=== PATIENT | female | born 1960 | race Hispanic/Latino ===

== ENCOUNTER 2017-07-17 12:02 | Inpatient (IN) | payer MEDICARE ==
[~2017-07-17] VITALS: Ht 149.9 cm; Wt 75.0 kg
[~2017-07-17 12:02] MED LIST: Z.0.FOLIC ACID1 MG; Z.0.IBUPROFEN400 MG; Z.0.PREDNISONE10 M1; Z.0.PRILOSEC OTC20 M; Z.1.LEVOTHYROXINE100; Z.1.METHOTREXATE2.5; [UNRECOGNIZED DRUG - OTHER]
[2017-07-17] MEDS ORDERED: CEFTRIAXONE SOD 1 GM VIAL IV STA (12:06)
[2017-07-17] MEDS ORDERED: AZITHROMYCIN 500MG/SOD CHL 0.9% 250ML BAG IV STA (12:06)
[2017-07-17] MEDS: SODIUM CHLORIDE 0.9% 1000ML 1,000 ML IV SCH ×2 (12:30→21:00)
[2017-07-17] MEDS ORDERED: ACETAMINOPHEN 1000 MG/100 ML IV STA (12:35)
--- NOTE | 2017-07-17 12:58 | Diagnostic Imaging Report ---
Portable chest x-ray CPT code 54518 INDICATION: Hypoxia, flulike symptoms COMPARISON: Chest x-ray 04/22/2009 FINDINGS: Frontal view of the chest obtained at 1019 hours. The cardiac silhouette is enlarged. The pulmonary vascular marking are engorged. The lungs demonstrate low lung volumes. There is prominence of the pulmonary interstitium, more severe compared to previous exam. There are patchy airspace opacities in the right upper lobe and in the lung bases. Eventration of the right diaphragm is stable. No large effusions. There is no pneumothorax. The osseous structures are intact and normal in morphology. IMPRESSION: 1. Stable cardiomegaly and pulmonary vascular congestion. 2. Patchy airspace opacities and prominence of the pulmonary interstitium could be due to infection or edema. A background of pulmonary fibrosis cannot be excluded. 3. Stable low lung volumes and eventration of the right diaphragm. Signed by: Dr. Roscoe Campbell MD on 07/17/2017 12:54 PM
[2017-07-17 13:07] LABS: BASOPHILS % 0.3 % (0.0-1.0); EOSINOPHILS # (AUTO) 0.1 (0.0-0.4); EOSINOPHILS % 0.7 % (0.0-6.0); HEMATOCRIT 43.4 % (34.2-44.1); HEMOGLOBIN 13.7 g/dL (12.0-16.0); LYMPHOCYTES % 7.9 % (18.0-39.1); MEAN CORPUSCULAR HEMOGLOBIN 30.5 pg (28-32); MEAN CORPUSCULAR HGB CONC 31.6 g/dL (31-35); MEAN CORPUSCULAR VOLUME 96.7 fL (81-99); MONOCYTES # (AUTO) 0.3 (0.2-0.8); MONOCYTES % 2.4 % (4.4-11.3); NEUTROPHILS # (AUTO) 10.8 (2.1-6.9); PLATELET COUNT 117 x10e3/uL (140-360); RED BLOOD COUNT 4.49 x10e6/uL (3.6-5.1); RED CELL DISTRIBUTION WIDTH 13.7 % (11.7-14.4)
[2017-07-17 13:07] LABS: BILIRUBIN,URINE NEGATIVE (NEGATIVE); KETONES,URINE NEGATIVE (NEGATIVE); LEUKOCYTE ESTERASE ,URINE NEGATIVE (NEGATIVE); NITRITE,URINE NEGATIVE (NEGATIVE); PROTEIN,URINE DIPSTICK NEGATIVE (NEGATIVE); URINE UROBILINOGEN 0.2 mg/dL (0.2 - 1)
[2017-07-17 13:08] LABS: CLARITY,URINE CLEAR (CLEAR); COLOR,URINE YELLOW (YELLOW)
[2017-07-17 13:23] LABS: BACTERIA,URINE RARE /HPF; EPITHELIAL CELLS,URINE FEW /LPF; RBC,URINE 0-5 /HPF (0-5)
[2017-07-17 13:25] LABS: ALANINE AMINOTRANSFERASE 14 IU/L (0-55); ALBUMIN 3.4 g/dL (3.5-5.0); ALBUMIN/GLOBULIN RATIO 0.6 (0.8-2.0); ALKALINE PHOSPHATASE 86 IU/L (40-150); BLOOD UREA NITROGEN 11 mg/dL (7-26); BUN/CREATININE RATIO 14 (6-25); CALCIUM 9.5 mg/dL (8.4-10.2); CARBON DIOXIDE 33 mmol/L (22-29); CHLORIDE 95 mmol/L (98-107); CREATININE, SERUM 0.81 mg/dL (0.57-1.11); EST GLOMERULAR FILTRATION RATE > 60 ML/MIN (60-); GLUCOSE 91 mg/dL (74-118); SODIUM 139 mmol/L (136-145)
[2017-07-17] MEDS ORDERED: ZOLPIDEM TARTRATE 5 MG TAB PO PRN (13:30)
[2017-07-17] MEDS ORDERED: ACETAMINOPHEN 325 MG TAB PO PRN (13:30)
[2017-07-17 13:43] LABS: CREATINE KINASE MB 1.5 ng/mL (0.00-5.00); TROPONIN I 0.018 ng/mL (0-0.300)
[2017-07-17] MEDS ORDERED: AZITHROMYCIN 500MG/NS 250 ML 250 ML IV SCH (14:00)
[2017-07-17 14:31] LABS: ABG PH 7.38 (7.31-7.41)
[2017-07-17 14:32] LABS: ABG HCO3 39 mmol/L (23-28); ABG PCO2 66 mmHg (41-51); ABG PO2 387 mmHg (80-105)
[2017-07-17] MEDS: ALBUTEROL SULF 0.083% NEB SOLN 3 ML NEB NEB SCH ×3 (15:01→23:55)
[2017-07-17] MEDS: HYDROCORTISONE SOD SUCCINATE 100 MG VIAL IV SCH ×2 (15:12→21:24)
[2017-07-17 20:34] VITALS: BP 118/70
[2017-07-17] MEDS: OSELTAMIVIR PHOSPHATE 75 MG CAP PO SCH (21:25)
[2017-07-17 22:12] VITALS: BP 118/70
[2017-07-18] VITALS: BP 125/75
[2017-07-18] MEDS: ALBUTEROL SULF 0.083% NEB SOLN 3 ML NEB NEB SCH ×6 (03:40→22:56)
[2017-07-18 04:00] VITALS: BP 140/74
[2017-07-18] MEDS: SODIUM CHLORIDE 0.9% 1000ML 1,000 ML IV SCH (04:47)
[2017-07-18] MEDS: LEVOTHYROXINE SODIUM 75 MCG TAB PO SCH (05:12)
[2017-07-18] MEDS: HYDROCORTISONE SOD SUCCINATE 100 MG VIAL IV SCH ×3 (05:12→21:20)
[2017-07-18 07:03] LABS: BASOPHILS % 0.2 % (0.0-1.0); HEMATOCRIT 34.5 % (34.2-44.1); HEMOGLOBIN 10.8 g/dL (12.0-16.0); LYMPHOCYTES # (AUTO) 0.8 (1.0-3.2); LYMPHOCYTES % 6.7 % (18.0-39.1); MEAN CORPUSCULAR HEMOGLOBIN 30.3 pg (28-32); MEAN CORPUSCULAR HGB CONC 31.3 g/dL (31-35); MEAN CORPUSCULAR VOLUME 96.6 fL (81-99); MONOCYTES # (AUTO) 0.4 (0.2-0.8); MONOCYTES % 2.9 % (4.4-11.3); NEUTROPHILS # (AUTO) 10.9 (2.1-6.9); NEUTROPHILS % 89.6 % (38.7-80.0); PLATELET COUNT 95 x10e3/uL (140-360); RED BLOOD COUNT 3.57 x10e6/uL (3.6-5.1)
[2017-07-18 07:34] LABS: ALANINE AMINOTRANSFERASE 13 IU/L (0-55); ALBUMIN 2.5 g/dL (3.5-5.0); ALBUMIN/GLOBULIN RATIO 0.6 (0.8-2.0); ALKALINE PHOSPHATASE 62 IU/L (40-150); ANION GAP 11.5 mmol/L (8-16); BLOOD UREA NITROGEN 11 mg/dL (7-26); BUN/CREATININE RATIO 16 (6-25); CALCIUM 8.1 mg/dL (8.4-10.2); CARBON DIOXIDE 31 mmol/L (22-29); CHLORIDE 99 mmol/L (98-107); CREATININE, SERUM 0.67 mg/dL (0.57-1.11); EST GLOMERULAR FILTRATION RATE > 60 ML/MIN (60-); GLUCOSE 99 mg/dL (74-118); POTASSIUM 3.5 mmol/L (3.5-5.1); SODIUM 138 mmol/L (136-145)
[2017-07-18 07:55] LABS: CREATINE KINASE MB 1.8 ng/mL (0.00-5.00); TROPONIN I 0.023 ng/mL (0-0.300)
[2017-07-18] MEDS: FOLIC ACID 1 MG TAB PO SCH (08:18)
[2017-07-18] MEDS: OSELTAMIVIR PHOSPHATE 75 MG CAP PO SCH ×2 (08:19→21:20)
[2017-07-18 08:23] VITALS: BP 137/80
[2017-07-18] MEDS ORDERED: SODIUM CHLORIDE 0.45% 1,000 ML IV ONE (09:45)
--- NOTE | 2017-07-18 10:25 | Pre Op History & Physical ---
CHIEF COMPLAINT: Worsening dyspnea and congestion. HISTORY OF PRESENT ILLNESS: The patient is a 57-year-old woman. She has a history of rheumatoid arthritis and interstitial lung disease secondary to rheumatoid arthritis. She receives Enbrel, methotrexate on a regular basis through the cell biology scientist. Over the past 2 days, she noticed more dyspnea and congestion. She had a fever to 103. She noted rhinorrhea and a cough productive of small amounts of phlegm. She came to the office and had a heart rate of 133. Her saturations were in the low 80s with 4 liters of oxygen. She was subsequently taken to the ER and received some intravenous fluid and was placed on BiPAP. She was also found to be positive for influenza. She was started on Tamiflu. She feels better this morning. PAST MEDICAL HISTORY 1. Rheumatoid arthritis requiring Enbrel and methotrexate. 2. Interstitial lung disease secondary to rheumatoid arthritis. 3. Hypertension. 4. Diabetes. PAST SURGICAL HISTORY: Status post angioplasty. ALLERGIES: THERE ARE NO KNOWN DRUG ALLERGIES. SOCIAL HISTORY: The patient has no alcohol use. She is not a smoker. REVIEW OF SYSTEMS: She did have fevers. She did not have headache. She had some rhinorrhea. There was no neck pain. She did not have any chest pain. She had difficulty breathing and worsening cough. She had no abdominal pain. There was no nausea or vomiting. She had no leg edema. She does have musculoskeletal deformities and inflammation consistent with rheumatoid arthritis. PHYSICAL EXAMINATION VITAL SIGNS: The blood pressure is now 137/80. The pulse is 87. It was 133 yesterday. The saturation is now 100% on 4 liters. It was 82% on 4 liters yesterday. HEENT: Examination shows no facial swelling or erythema. The nasal mucosa is normal. The oropharynx is normal. LYMPHATIC: Examination shows no submandibular, cervical or supraclavicular adenopathy. CARDIAC: Exam reveals a regular rate and rhythm with a normal S1 and S2. There are no murmurs or rubs. LUNGS: Auscultation reveals crackles in both lung asher. ABDOMEN: Soft and nontender. There is no rebound or guarding. EXTREMITIES: Examination shows hand deformities consistent with rheumatoid arthritis including ulnar deviation and deformities of the PIP and MCP joints. NEUROLOGICAL: Exam shows no focal abnormalities. RADIOGRAPHIC DATA: Chest x-ray shows some alveolar infiltrate in the lower lung asher superimposed on chronic fibrotic disease. IMPRESSION 1. Influenza with associated viral pneumonia. 2. Nonspecific interstitial lung disease secondary to rheumatoid arthritis. 3. Rheumatoid arthritis with chronic deformities requiring treatment with tumor necrosis factor inhibitors. 4. Diabetes. 5. Hypertension. 6. Prior coronary artery disease. PLAN 1. Continue the Tamiflu. 2. Hydration. 3. Change to regular diet. 4. Discontinue Flower. 5. Monitor blood sugars. Job#: [id number] EV
[2017-07-18 12:12] VITALS: BP 133/76
[2017-07-18] MEDS: AZITHROMYCIN 500MG/NS 250 ML 250 ML IV SCH (15:36)
[2017-07-18 16:20] VITALS: BP 126/60
[2017-07-18 20:00] VITALS: BP 136/72
[2017-07-18] MEDS ORDERED: SODIUM CHLORIDE 0.9% 1000ML 1,000 ML ONE (20:40)
[2017-07-19] VITALS (7 sets, daily range): BP systolic 105–144; BP diastolic 64–94
[2017-07-19] MEDS: ALBUTEROL SULF 0.083% NEB SOLN 3 ML NEB NEB SCH ×6 (02:56→23:10)
[2017-07-19] MEDS: HYDROCORTISONE SOD SUCCINATE 100 MG VIAL IV SCH (05:21)
[2017-07-19] MEDS: LEVOTHYROXINE SODIUM 75 MCG TAB PO SCH (05:21)
[2017-07-19] MEDS: FOLIC ACID 1 MG TAB PO SCH (09:09)
[2017-07-19] MEDS: OSELTAMIVIR PHOSPHATE 75 MG CAP PO SCH ×2 (09:09→21:40)
[2017-07-19] MEDS: AZITHROMYCIN 500MG/NS 250 ML 250 ML IV SCH (12:22)
[2017-07-19] MEDS ORDERED: HYDROCORTISONE SOD SUCCINATE 100 MG VIAL IV SCH (21:00)
[2017-07-20] VITALS: BP 128/76
[2017-07-20 04:00] VITALS: BP 139/72
[2017-07-20] MEDS: LEVOTHYROXINE SODIUM 75 MCG TAB PO SCH (06:00)
[2017-07-20] MEDS: FOLIC ACID 1 MG TAB PO SCH (08:55)
[2017-07-20] MEDS: OSELTAMIVIR PHOSPHATE 75 MG CAP PO SCH (08:55)
[2017-07-20 10:15] VITALS: BP 131/87
== END 2017-07-20 11:30 | disposition home or self-care (01) | DRG 195 ==
LOC: ER 12:02 → ERHOLD 12:28 → IMCU 17:12 → MED/SURG3 07-19 23:50
PROVIDERS: ADMIT Internal Medicine Critical Care Medicine; ATTEND Internal Medicine Critical Care Medicine
PROC: 5A09357 Assistance with Respiratory Ventilation, Less than 24 Consecutive Hours, Continuous Positive Airway Pressure (ICD-10-PCS; principal; 2017-07-17)
DX: J10.1 Influenza due to other identified influenza virus with other respiratory manifestations (principal); M05.10 Rheumatoid lung disease with rheumatoid arthritis of unspecified site; I10 Essential (primary) hypertension; J12.9 Viral pneumonia, unspecified; I25.10 Atherosclerotic heart disease of native coronary artery without angina pectoris; Z95.5 Presence of coronary angioplasty implant and graft; E11.9 Type 2 diabetes mellitus without complications; Z79.52 Long term (current) use of systemic steroids; Z79.899 Other long term (current) drug therapy
CPT/HCPCS: 36415; 36600; 71010; 80053; 81001; 82550; 82553; 82805; 84484; 85025; 87040; 87071; 87086; 87205; 87400; 87449; 93005; 94640; 94660; 94760; 99285; J0456; J0696; J1720; J7030

== ENCOUNTER → 2017-11-15 | Outpatient (CLI) | payer MEDICARE ==
--- NOTE | 2017-11-15 11:59 | Diagnostic Imaging Report ---
PROCEDURE: X-RAY CHEST, TWO VIEWS COMPARISON: 03/19/2011; 07/17/2017. INDICATIONS: PNEUMONIA FINDINGS: Lung volumes are low. Coarse lower lobe predominant interstitial opacities with probable bibasilar honeycombing, with interval progression relative to 2010. No new consolidation, pleural effusion, or pneumothorax. Stable cardiomediastinal contour with tortuosity and atherosclerotic calcification of the thoracic aorta. No acute osseous abnormality. CONCLUSION: Interval progression of pulmonary fibrotic changes with suspected bilateral lower lobe honeycombing. Plain radiographic findings are suggestive of usual interstitial pneumonia (UIP). CT scan of the chest without contrast would be of benefit for further evaluation. Dictated by: Adam Augustin M.D. on 11/15/2017 at 12:01 Electronically approved by: Adam Augustin M.D. on 11/15/2017 at 12:01
== END ==
LOC: RAD 10:52
PROVIDERS: ATTEND Internal Medicine Critical Care Medicine
DX: J18.8 Other pneumonia, unspecified organism (principal)
CPT/HCPCS: 71046

== ENCOUNTER 2019-01-15 11:40 | Inpatient (IN) | payer MEDICARE ==
[2019-01-15] VITALS (19 sets, daily range): BP systolic 89–123; BP diastolic 68–84
[~2019-01-15] VITALS: Ht 149.9 cm; Wt 74.0 kg
[~2019-01-15 11:40] MED LIST changes: -Z.0.FOLIC ACID1 MG; +Z.0.FOLIC ACID1 MG PO; -Z.1.LEVOTHYROXINE100; +Z.1.LEVOTHYROXINE100 PO
--- OUTSIDE RECORDS SUMMARY | 2019-01-15 11:43 | XMS REPORT | Clinical Summary ---
Author Author [facility] Organization [facility] Address Unknown Phone Unavailable Care Team Providers Care Plasterer Spot Name Role Phone Karel Man PCP Allergies No Known Allergies Medications End Date Status Medication Sig Dispensed Refills Start Date Active predniSONE (DELTASONE) 5 Take 5 mg by 0 mg tablet mouth daily. Active omeprazole (PriLOSEC) 10 Take 20 mg by 0 MG capsule mouth daily. Active methotrexate 2.5 MG Take by mouth 0 tablet every 12 (twelve) hours for 3 (three) doses only each week. Active levothyroxine (SYNTHROID, Take 100 mcg 0 LEVOXYL) 100 mcg tablet by mouth daily. Active levocetirizine (XYZAL) 5 Take 5 mg by 0 MG tablet mouth every evening. Active etanercept (ENBREL) 50 Inject 50 mg 0 mg/mL (0.98 mL) injection under the skin once a week. Active ibuprofen (ADVIL,MOTRIN) Take 800 mg 0 800 MG tablet by mouth every 6 (six) hours as needed for mild pain. Active folic acid (FOLVITE) 400 Take 800 mcg 0 MCG tablet by mouth daily. Active melatonin 5 mg capsule Take by 0 mouth. Active cholecalciferol, vitamin Take by 0 D3, (VITAMIN D3) 5,000 mouth. unit tablet Active Problems Not on file Encounters Care Team Description Date Type Specialty Heri Aguilar MD Closed nondisplaced transverse fracture of shaft of left fibula with routine healing, subsequent encounter (Primary Dx); Pain of left fibula 04/19/2018 Office Visit Orthopedic Surgery Heri Aguilar MD Closed nondisplaced transverse fracture of shaft of left fibula with routine healing, subsequent encounter (Primary Dx); Pain in left tibia 03/22/2018 Office Visit Orthopedic Surgery Heri Aguilar MD 03/09/2018 Hospital Radiology Encounter Heri Aguilar MD Closed nondisplaced transverse fracture of shaft of left fibula, initial encounter (Primary Dx) 03/09/2018 Office Visit Orthopedic Surgery after 01/14/2018 Social History Date Tobacco Use Types Packs/Day Years Used Never Smoker Smokeless Tobacco: Never Used Alcohol Use Drinks/Week oz/Week Comments No Sex Assigned at Date Recorded Not on file Industry Job Start Date Occupation Not on file Not on file Not on file Travel End Travel History Travel Start No recent travel history available. Last Filed Vital Signs Time Taken Vital Sign Reading - Blood Pressure - - Pulse - - Temperature - - Respiratory Rate - - Oxygen Saturation - - Inhaled Oxygen - Concentration 04/19/2018 2:32 PM CDT Weight 77.1 kg (170 lb) 04/19/2018 2:32 PM CDT Height 149.9 cm (4' 11") 04/19/2018 2:32 PM CDT Body Mass Index 34.34 Plan of Treatment Health Maintenance Due Date Last Done Comments BREAST CANCER SCREENING 2010 COLONOSCOPY SCREENING 2010 SHINGLES VACCINES (#1) 2010 INFLUENZA VACCINE 02/16/2019 Procedures Comments Procedure Name Priority Date/Time Associated Diagnosis XR TIBIA FIBULA 2 VW LEFT Routine 04/19/2018 Pain of left fibula 2:43 PM CDT XR TIBIA FIBULA 2 VW LEFT Routine 03/22/2018 Pain in left tibia 2:45 PM CDT XR LOWER EXTREMITY Routine 03/08/2018 EXTERNAL STUDY 11:33 AM CDT after 01/14/2018 Results * XR Tibia Fibula 2 Vw Left (04/19/2018 2:43 PM CDT) Only the most recent of 2 results within the time period is included. Specimen Narrative Performed At [facility] 2 views of the left tibia/fibula.Interval healing at the previously described fracture site. Performing Organization Address City/State[facility] Phone Number [facility] [address] [place] [address] * XR Lower Extremity External Study (03/08/2018 11:33 AM CDT) Specimen Narrative Performed At This exam was not acquired at a [facility] facility and has not been [facility] interpreted by a [facility] Provider.The exam was imported into our imaging system for comparisons purposes. Performing Organization Address City/[facility] Phone Number [facility] [address] [place] [address] after 01/14/2018 Insurance Type Payer Benefit Subscriber ID Effective Phone Address Plan / Dates Group PPO HUMANA MEDICARE HUMANA xxxxxxxxx 2017-P MEDICARE resent PPO/PFFS/E [facility] Advance Directives Patient has advance care planning documents on file. For more information, flory freeman contact: Gilberto Nevarez [address] [place] [address]
--- OUTSIDE RECORDS SUMMARY | 2019-01-15 11:44 | XMS REPORT | CCD ---
Author Author Auto Generated Organization [facility] Address Unknown Phone Unavailable Care Team Providers Care Linux Systems Administrator Name Role Phone Nancy Murray RP Vangie Han PP Allergies, Adverse Reactions, Alerts Substance Reaction Status NKDA Active Vital Signs Most recent to oldest [Reference Range]: 1 Height 152.40 cm (08/09/2012 12:43:00) Weight 58.182 kg (08/09/2012 12:43:00)
--- OUTSIDE RECORDS SUMMARY | 2019-01-15 11:44 | XMS REPORT | Continuity of Care Document ---
Author Author [facility] Address Unknown Phone Unavailable Care Team Providers Care Crown Ironer Name Role Phone [employer] Information Medialive Unavailable Unavailable Problems Problem Status Onset Date Classification Date Reported Comments Source DYSPNEA ON EXERTION, SCLERODERMA Active 08/04/2012 [facility] LEFT KNEE ARTHIRITIS Active 07/19/2000 [facility] [place] //////// Active [facility] [place] Medications No Data Provided for This Section Allergies, Adverse Reactions, Alerts Substance Category Reaction Severity Reaction type Status Date Reported Comments Source No Known Medication Allergies Assertion Drug allergy [facility] [place] Immunizations No Data Provided for This Section Results No Data Provided for This Section Pathology Reports No Data Provided for This Section Diagnostic Reports Report Value Date Source Chest wo contrast CT Exam: High Resolution Chest CT without contrast Reason for exam: - M81.0 Age-related osteoporosis without current pathological fracture Comparison exam: X-ray 08/09/2012 Technique: Multiple axial images obtained of the chest. 1.25 and 3.75 mm slices were acquired without injection of intravenous contrast, as per HRCT protocol. In addition, reformatted sagittal, coronal, and prone images were obtained for additional diagnostic information. Total exam FBV=028 mGy-cm. This exam was performed according to our departmental dose-optimization program, which includes automated exposure control, adjustment of the MA and/or KV according to patient size and/or use of iterative reconstruction technique. Discussion: Please note that this exam is suboptimal for evaluation of the mediastinum and olu secondary to lack of intravenous contrast. Visualized portions of the thyroid gland are unremarkable. Grossly no mediastinal, hilar, or axillary lymphadenopathy. Heart size is within normal limits. No pericardial effusion. Central airways are patent. No pleural effusion identified. Diffuse groundglass opacification, traction bronchiectasis and interstitial thickening are seen, predominantly within the lower lungs. These findings are most compatible with moderate to severe interstitial pulmonary fibrosis. No suspicious pulmonary nodules identified. The adrenal glands are within normal limits for technique. No acute bony abnormalities appreciated. No suspicious osteoblastic or osteolytic lesions. Impression: 1. Findings are most compatible with moderate to severe interstitial pulmonary fibrosis. 11/15/2018 [facility] [place] Consultation Notes No Data Provided for This Section Discharge Summaries No Data Provided for This Section History and Physicals No Data Provided for This Section Vital Signs Vital Sign Value Date Comments Source Height 152.40 cm 08/09/2012 [facility] Weight 58.182 08/09/2012 [facility] Encounters Location Location Details Encounter Type Encounter Number Reason For Visit Attending Provider ADM Date DC Date Status Source [facility] [place] Outpt Diag Services [id number] Nancy Murray 11/15/2018 11/16/2018 [facility] [place] [facility] Outpatient [id number] DYSPNEA ON EXERTION, SCLERODERMA NANCY MURRAY Active [facility] TH [id number] LEFT KNEE ARTHIRITIS NON PHYSICIAN Cancel [facility] [place] Procedures No Data Provided for This Section Assessment and Plan No Data Provided for This Section Plan of Care No Data Provided for This Section Social History Social History Date Source No data available for this section 11/16/2018 [facility] [place] Family History No Data Provided for This Section Advance Directives No Data Provided for This Section Functional Status No Data Provided for This Section
--- OUTSIDE RECORDS SUMMARY | 2019-01-15 11:44 | XMS REPORT ---
Author Author [facility] Address Unknown Phone Unavailable Care Team Providers Care Business Operations Coordinator Name Role Phone TRISTON GANDHI Unavailable Unavailable HAMPEL, KRISTIAN Unavailable Unavailable Problems This patient has no known problems. Allergies, Adverse Reactions, Alerts This patient has no known allergies or adverse reactions. Medications This patient has no known medications. Results Test Description Test Time Test Comments Text Results Atomic Results Result Comments CHEST 2 VIEWS [place] [address] Patient Name: BAILEY SUMMERS MR #: [id number] : 1960 Age/Sex: 57/F Req #: [id number] Adm Physician: Ordered by: TRISTON GANDHI MD Report #: [id number] Location: [facility] Room/Bed: Procedure: [id number] DX/CHEST 2 VIEWS Exam Date: 11/15/17 Exam Time: 1120 REPORT STATUS: Signed PROCEDURE: X-RAY CHEST, TWO VIEWS COMPARISON: 03/19/2011; 07/17/2017. INDICATIONS: PNEUMONIA FINDINGS: Lung volumes are low. Coarse lower lobe predominant interstitial opacities with probable bibasilar honeycombing, with interval progression relative to 2010. No new consolidation, pleural effusion, or pneumothorax. Stable cardiomediastinal contour with tortuosity and atherosclerotic calcification of the thoracic aorta. No acute osseous abnormality. CONCLUSION: Interval progression of pulmonary fibrotic changes with suspected bilateral lower lobe honeycombing. Plain radiographic findings are suggestive of usual interstitial pneumonia (UIP). CT scan of the chest without contrast would be of benefit for further evaluation. Dictated by: Glenroy Baca M.D. on 11/15/2017 at 12:01 Electronically approved by: Glenroy Baca M.D. on 11/15/2017 at 12:01 Dictated By: GLENROY BACA MD 1201 Transcribed By: MINDI on 11/15/17 1201 COPY TO: TRISTON GANDHI MD CHEST SINGLE (PORTABLE) [place] [address] Patient Name: BAILEY SUMMERS MR #: [id number] : 1960 Age/Sex: 57/F Req #: [id number] Adm Physician: KRISTIAN CRAWLEY MD Ordered by: MIKI RIVAS MD Report #: [id number] Location: [facility] Room/Bed: [place] [address] Procedure: [id number] DX/CHEST SINGLE (PORTABLE) Exam Date: 07/17/17 Exam Time: 1235 REPORT STATUS: Signed Portable chest x-ray CPT code 31340 INDICATION: Hypoxia, flulike symptoms COMPARISON: Chest x-ray 04/22/2009 FINDINGS: Frontal view of the chest obtained at 1019 hours. The cardiac silhouette is enlarged. The pulmonary vascular marking are engorged. The lungs demonstrate low lung volumes. There is prominence of the pulmonary interstitium, more severe compared to previous exam. There are patchy airspace opacities in the right upper lobe and in the lung bases. Eventration of the right diaphragm is stable. No large effusions. There is no pneumothorax. The osseous structures are intact and normal in morphology. IMPRESSION: 1. Stable cardiomegaly and pulmonary vascular congestion. 2. Patchy airspace opacities and prominence of the pulmonary interstitium could be due to infection or edema. A background of pulmonary fibrosis cannot be excluded. 3. Stable low lung volumes and eventration of the right diaphragm. Signed by: Dr. Kaylene Campbell MD on 07/17/2017 12:54 PM Dictated By: KAYLENE CAMPBELL MD 1254 Transcribed By: ROZ on 07/17/17 1259 COPY TO: MIKI NAJERA MD
--- OUTSIDE RECORDS SUMMARY | 2019-01-15 11:44 | XMS REPORT | Summary of Care ---
Author Author [facility] [place] Organization [facility] [place] Address Unknown Phone Unavailable Encounter HQ Encntr_alias(FIN) [id number] Date(s): 11/15/18 - 11/15/18 [facility] [place] [address] [place] [phone] Discharge Disposition: Home or Self Care Attending Physician: Nancy Murray MD Referring Physician: Nancy Murray MD Vital Signs No data available for this section Problem List No data available for this section Allergies, Adverse Reactions, Alerts No Known Medication Allergies Medications No data available for this section Results No data available for this section Immunizations No data available for this section Procedures No data available for this section Social History No data available for this section Assessment and Plan No data available for this section
[2019-01-15] MEDS ORDERED: SODIUM CHLORIDE 0.9% 1000ML 1,000 ML IV STA ×2 (11:54→12:23)
[2019-01-15] MEDS ORDERED: PREDNISONE5 MG PO (11:58)
[2019-01-15] MEDS ORDERED: VITAMIN D400 UNIT PO (11:58)
[2019-01-15] MEDS ORDERED: ENBREL25 MG (11:58)
[2019-01-15] MEDS ORDERED: MYCOPHENOLATE250 MG PO (11:58)
[2019-01-15] MEDS ORDERED: LEVOCETIRIZINE D5 MG PO (11:58)
[2019-01-15] MEDS ORDERED: RANITIDINE HCL150 MG PO (11:58)
[2019-01-15] MEDS ORDERED: MELATONIN3 MG PO (11:58)
[2019-01-15] MEDS ORDERED: IPRATROPIUM BROMIDE 0.02% 2.5 ML NEB NEB ONE (12:00)
[2019-01-15] MEDS ORDERED: LEVALBUTEROL HCL SOLN NEBU 1.25 MG/3 ML NEB INH ONE (12:00)
[2019-01-15 12:01] LABS: BASOPHILS # (AUTO) 0.1 (0.0-0.1); BASOPHILS % 0.4 % (0.0-1.0); EOSINOPHILS % 0.1 % (0.0-6.0); HEMATOCRIT 50.1 % (34.2-44.1); HEMOGLOBIN 15.7 g/dL (12.0-16.0); LYMPHOCYTES % 6.1 % (18.0-39.1); MEAN CORPUSCULAR HEMOGLOBIN 28.3 pg (28-32); MEAN CORPUSCULAR HGB CONC 31.3 g/dL (31-35); MEAN CORPUSCULAR VOLUME 90.4 fL (81-99); MONOCYTES # (AUTO) 0.7 (0.2-0.8); MONOCYTES % 4.2 % (4.4-11.3); NEUTROPHILS # (AUTO) 14.3 (2.1-6.9); NEUTROPHILS % 88.6 % (38.7-80.0); PLATELET COUNT 120 x10e3/uL (140-360); RED BLOOD COUNT 5.54 x10e6/uL (3.6-5.1); RED CELL DISTRIBUTION WIDTH 13.3 % (11.7-14.4)
--- NOTE | 2019-01-15 12:01 | NUR ---
BIPAP 06/22, RATE 14 @ 60%
[2019-01-15 12:09] LABS: INR 1.04; PARTIAL THROMBOPLASTIN TIME 25.5 seconds (23.8-35.5); PROTHROMBIN TIME 14.1 seconds (11.9-14.5)
[2019-01-15 12:19] LABS: ALANINE AMINOTRANSFERASE 11 IU/L (0-55); ALBUMIN 3.9 g/dL (3.5-5.0); ALBUMIN/GLOBULIN RATIO 0.7 (0.8-2.0); ALKALINE PHOSPHATASE 109 IU/L (40-150); ANION GAP 16.1 mmol/L (8-16); BLOOD UREA NITROGEN 13 mg/dL (7-26); BUN/CREATININE RATIO 14 (6-25); CALCIUM 10.3 mg/dL (8.4-10.2); CARBON DIOXIDE 35 mmol/L (22-29); CHLORIDE 91 mmol/L (98-107); CREATININE, SERUM 0.93 mg/dL (0.57-1.11); EST GLOMERULAR FILTRATION RATE > 60 ML/MIN (60-); GLUCOSE 111 mg/dL (74-118); MAGNESIUM 1.6 MG/DL (1.3-2.1); POTASSIUM 4.1 mmol/L (3.5-5.1); SODIUM 138 mmol/L (136-145)
--- NOTE | 2019-01-15 12:23 | Diagnostic Imaging Report ---
EXAMINATION: CHEST SINGLE (PORTABLE) INDICATION: Shortness of breath. COMPARISON: Chest radiograph 11/15/2017. FINDINGS: TUBES and LINES: None. LUNGS: Low lung volumes. There are increasing diffuse interstitial and airspace opacities. There are coarse bilateral interstitial opacities with volume loss. PLEURA: Trace bilateral pleural effusions. No evidence of pneumothorax. HEART AND MEDIASTINUM: The cardiomediastinal silhouette is unremarkable. There are atherosclerotic calcifications within the aorta. BONES AND SOFT TISSUES: No acute osseous abnormality. UPPER ABDOMEN: No free air under the diaphragm. IMPRESSION: Diffuse multifocal opacities, which may represent pulmonary edema or multifocal pneumonia on a background of pulmonary fibrosis. Suggest follow-up chest radiograph in 6-8 weeks to assess for resolution. Signed by: Dr. Nico Yates MD on 01/15/2019 12:20 PM
[2019-01-15 12:25] LABS: B-TYPE NATRIURETIC PEPTIDE2 274.8 pg/mL (0-100)
[2019-01-15] MEDS ORDERED: LORAZEPAM INJ 2 MG/ML VIAL IV NR (12:30)
[2019-01-15] MEDS: AZITHROMYCIN 500MG/NS 250 ML 250 ML IV SCH (12:35)
--- NOTE | 2019-01-15 12:41 | NUR ---
PERIWICK/PURIWICK ON TO SX
[2019-01-15 12:59] LABS: CREATINE KINASE 61 IU/L (29-168)
[2019-01-15] MEDS: HYDROCORTISONE SOD SUCCINATE 100 MG VIAL IV SCH (13:00)
[2019-01-15] MEDS ORDERED: PROPOFOL IV EMULSION 10MG/ML 100 ML ONE (13:01)
[2019-01-15] MEDS ORDERED: HYDROCORTISONE SOD SUCCINATE 100 MG VIAL ONE (13:01)
[2019-01-15] MEDS ORDERED: VANCOMYCIN 1GM/NS 250 ML 250 ML ONE (13:05)
[2019-01-15] MEDS: VANCOMYCIN 1GM/NS 250 ML 250 ML IV SCH (13:15)
[2019-01-15] MEDS ORDERED: SODIUM CHLORIDE 0.9% 1000ML 2,000 ML ONE (13:19)
[2019-01-15] MEDS ORDERED: NOREPINEPHRINE 8 MG/D5W 250 ML 250 ML ONE (13:23)
[2019-01-15] MEDS ORDERED: MIDAZOLAM HCL 2 MG/2 ML VIAL ONE ×3 (13:29→13:47)
[2019-01-15] MEDS ORDERED: SODIUM CHLORIDE 0.9% 1000ML 1,000 ML IV SCH (13:30)
[2019-01-15] MEDS ORDERED: VECURONIUM BROMIDE FOR INJ 20 MG VIAL ONE (13:54)
[2019-01-15] MEDS: MEROPENEM 1GM 100 ML IV SCH ×2 (14:00→22:00)
--- NOTE | 2019-01-15 14:00 | NUR ---
see detail vs sheet
[2019-01-15] MEDS: ALBUTEROL SULF 0.083% NEB SOLN 3 ML NEB NEB SCH ×3 (15:00→23:20)
[2019-01-15] MEDS: SODIUM CHLORIDE 0.9% 1000ML 1,000 ML IV SCH ×2 (15:00→20:34)
[2019-01-15] MEDS ORDERED: ETOMIDATE 2 MG/ML 10 ML INJ IV ONE (15:13)
[2019-01-15] MEDS ORDERED: SUCCINYLCHOLINE CHLORIDE 20 MG/ML 10ML VIAL ONE (15:13)
--- NOTE | 2019-01-15 15:22 | History and Physical ---
CHIEF COMPLAINT: Worsening cough and dyspnea and a history of rheumatoid arthritis. HISTORY OF PRESENT ILLNESS: The patient is a 58-year-old woman. She has a history of rheumatoid arthritis and uses Enbrel at home as well as low-dose prednisone and CellCept. She also has a history of pulmonary fibrosis. She uses oxygen as well as bronchodilators. She was hospitalized in [facility] in August with possible pneumonia superimposed on a pulmonary fibrosis. The patient now complains of worsening cough over several days. She did not complain of fevers. She had more difficulty breathing and her oxygen saturations were low at home. She did not have chest pain. There was no nausea or vomiting. PAST MEDICAL HISTORY: 1. Rheumatoid arthritis. 2. Hypothyroidism. 3. Pulmonary fibrosis. 4. Hypertension. 5. Diabetes. PAST SURGICAL HISTORY: Prior angioplasty. ALLERGIES: NO KNOWN DRUG ALLERGIES. SOCIAL HISTORY: The patient is not a smoker. She is not a drinker. REVIEW OF SYSTEMS: The patient denies any fevers. She did have worsening congestion and cough. She had no headache or neck pain. She did have some trouble breathing. She had no chest pain. She had no abdominal pain. She had no nausea or vomiting. She has no leg edema. PHYSICAL EXAMINATION: VITAL SIGNS: Blood pressure is 128/82 and the saturation is 100% on 4 liters. The pulse is 120 to 130 and she is now on a mechanical ventilator with an assist control at a rate of 18. She has an oral endotracheal tube in place. CARDIAC: Reveals a regular rate and rhythm with a normal S1 and S2. There are no murmurs or rubs. PULMONARY: Auscultation of lungs reveals no wheezing. There are crackles and rhonchi on both lung asher. ABDOMEN: Soft and nontender. There is no rebound or guarding. EXTREMITIES: Show no leg edema or calf tenderness. There is no cyanosis or clubbing. SKIN: Shows no rashes. NEUROLOGIC: Shows no focal abnormalities. LABORATORY DATA: Blood gas showed an elevated carbon dioxide with a normal pH. The BUN to creatinine ratio is normal. The other electrolytes are within normal limits. The calcium is 10.3 and the albumin is 3.9. White blood cell count is 16.1 and hemoglobin is 15.7. The platelet count is 120. RADIOGRAPHIC DATA: Shows bilateral pulmonary infiltrates. IMPRESSION: 1. Acute on chronic respiratory failure. 2. 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 3. Pneumonia with immunosuppression and severe sepsis, present on admission. 4. Rheumatoid arthritis. 5. History of coronary artery disease. PLAN: 1. The patient is scheduled for CT scan. 2. We will begin broad spectrum antibiotics as well as cultures. 3. ID consultation. 4. Continue with mechanical ventilation and repeat ABG. 5. IV fluids. 6. Stress dose steroids because the patient has been on low-dose prednisone. 7. Case discussed with family, nursing, and the emergency department physician. Oscar Kelly MD LMH/MODL /[id number]
--- NOTE | 2019-01-15 15:37 | Diagnostic Imaging Report ---
EXAMINATION: CHEST SINGLE (PORTABLE) INDICATION: Status post intubation and attempted right IJ central line. COMPARISON: Chest radiograph 01/15/2019. FINDINGS: TUBES and LINES: Status post interval intubation, the ET tube terminates at the origin of the right mainstem bronchus. Interval placement of an enteric tube, which courses into the stomach, the tip is not seen. LUNGS: Lungs are moderately inflated. Again noted are diffuse interstitial and airspace opacities. There are coarse bilateral interstitial opacities with volume loss. PLEURA: No pleural effusion or pneumothorax. HEART AND MEDIASTINUM: The cardiomediastinal silhouette is unremarkable. There are atherosclerotic calcifications within the aorta. BONES AND SOFT TISSUES: No acute osseous abnormality. UPPER ABDOMEN: No free air under the diaphragm. IMPRESSION: Status post intubation, the ET tube terminates at the origin of the right mainstem bronchus. Per discussion with Dr. Zacarias on 01/15/2019 at 355PM, the ET tube was retracted subsequent to this radiograph. Diffuse multifocal opacities, which may represent pulmonary edema or multifocal pneumonia on a background of pulmonary fibrosis. Signed by: Dr. Nico Yates MD on 01/15/2019 3:56 PM
--- OUTSIDE RECORDS SUMMARY | 2019-01-15 15:46 | XMS REPORT | Clinical Summary ---
Author Author [facility] Organization [facility] Address Unknown Phone Unavailable Care Team Providers Care Funeral Home Makeup Artist Name Role Phone Karel Man PCP Allergies [...] previously described fracture site. Performing Organization Address City/State[facility] Phone Number [facility] [address] [place] [address] * XR Lower Extremity External Study (03/08/2018 11:33 AM CDT) Specimen Narrative Performed At This exam was not acquired at a [facility] facility and has not been [facility] interpreted by a [facility] Provider.The exam was imported into our imaging system for comparisons purposes. Performing Organization Address City/[facility] Phone Number [facility] MY[facility] [address] [place] [address] after 01/14/2018 Insurance Type Payer Benefit Subscriber ID Effective Phone Address Plan / Dates Group PPO HUMANA MEDICARE HUMANA xxxxxxxxx 2017-P MEDICARE resent PPO/PFFS/E [facility] Advance Directives Patient has advance care planning documents on file. For more information, flory freeman contact: Gilberto Nevarez [address] [place] [address]
--- OUTSIDE RECORDS SUMMARY | 2019-01-15 15:46 | XMS REPORT | Continuity of Care Document ---
Author Author [facility] Address Unknown Phone Unavailable Care Team Providers Care Aquaculture Farm Manager Name Role Phone [employer] Information Maker's Row Unavailable Unavailable Problems Problem Status Onset Date Classification Date Reported Comments Source DYSPNEA ON EXERTION, SCLERODERMA Active 08/04/2012 [facility] LEFT KNEE ARTHIRITIS Active 07/19/2000 [facility] [place] //////// Active [facility] [place] Medications No Data Provided for This Section Allergies, Adverse Reactions, Alerts Substance Category Reaction Severity Reaction type Status Date Reported Comments Source No Known Medication Allergies Assertion Drug allergy [facility] [place] Immunizations No Data Provided for This Section [...] obtained for additional diagnostic information. Total exam NBX=942 mGy-cm. This exam was performed according to [...] to severe interstitial pulmonary fibrosis. 11/15/2018 [facility] [place] Consultation Notes No Data Provided for This Section Discharge Summaries No Data Provided for This Section History and Physicals No Data Provided for This Section Vital Signs Vital Sign Value Date Comments Source Height 152.40 cm 08/09/2012 [facility] Weight 58.182 08/09/2012 [facility] Encounters Location Location Details Encounter Type Encounter Number Reason For Visit Attending Provider ADM Date DC Date Status Source [facility] [place] [facility] [id number] Nancy Murray 11/15/2018 11/16/2018 [facility] Outpatient [id number] DYSPNEA ON EXERTION, SCLERODERMA NANCY MURRAY Active [facility] TH [id number] LEFT KNEE ARTHIRITIS NON PHYSICIAN Cancel [facility] [place] Procedures No Data Provided for This Section Assessment and Plan No Data Provided for This Section Plan of Care No Data Provided for This Section Social History Social History Date Source No data available for this section 11/16/2018 [facility] [place] Family History No Data Provided for This Section Advance Directives No Data Provided for This Section Functional Status No Data Provided for This Section
[2019-01-15] MEDS: SODIUM CHLORIDE 0.9% 250ML IRRIG IR SCH ×2 (16:00→20:05)
[2019-01-15] MEDS: NOREPINEPHRINE INJ 4MG/4ML 8 MG in DEXTROSE 5% 250ML 250 ML IV PRN (16:07)
[2019-01-15] MEDS ORDERED: VECURONIUM BROMIDE FOR INJ 20 MG VIAL IV NR (16:10)
[2019-01-15] MEDS ORDERED: MIDAZOLAM HCL 2 MG/2 ML VIAL IV NR (16:10)
[2019-01-15] MEDS ORDERED: MIDAZOLAM HCL 2 MG/2 ML VIAL IV STA ×2 (16:10)
[2019-01-15] MEDS ORDERED: ETOMIDATE 2 MG/ML 10 ML INJ IV STA ×2 (16:10)
[2019-01-15] MEDS ORDERED: SUCCINYLCHOLINE 200 MG/10 ML SYR IV STA (16:10)
[2019-01-15 16:20] LABS: ABG HCO3 37 mmol/L (23-28); ABG PCO2 64 mmHg (41-51); ABG PH 7.37 (7.31-7.41); ABG PO2 79 mmHg (80-105)
[2019-01-15] MEDS ORDERED: IOPAMIDOL 370 MG/ML 200 ML INFUS..BTL INJ ONE (16:28)
[2019-01-15] MEDS ORDERED: SODIUM CHLORIDE 0.9% 50ML 50 ML ONE (16:28)
[2019-01-15] MEDS: FAMOTIDINE 20 MG/2 ML VIAL IV SCH (16:34)
[2019-01-15] MEDS: PROPOFOL IV EMULSION 10MG/ML 100ML BTL IV PRN (16:35)
--- NOTE | 2019-01-15 16:38 | NUR ---
DOPAMINE DRIP REDUCED TO 15 MICS/MIN, BP 104/77, PROPOFOL DRIP STARTED @ 1O ABRAHAN/MIN, WILL CONTINUE TO MONITOR
--- NOTE | 2019-01-15 17:47 | Diagnostic Imaging Report ---
EXAM: CT Chest with contrast- Pulmonary Embolism Protocol INDICATION: Hypoxia, disorientation. COMPARISON: None TECHNIQUE: Chest was scanned utilizing a multidetector helical scanner from the lung apex through the level of the diaphragm after administration of IV contrast. Thin section reconstructions were obtained with special concentration on the pulmonary arteries. Coronal and sagittal reformations were obtained. Pulmonary embolism protocol was performed. IV CONTRAST: 100 cc of Isovue 370 RADIATION DOSE: Total DLP: 461 mGy*cm Dose modulation, iterative reconstruction, and/or weight based adjustment of the mA/kV was utilized to reduce the radiation dose to as low as reasonably achievable. COMPLICATIONS: None FINDINGS: LINES/ TUBES: ET tube terminates in the mid trachea. Enteric tube terminates in the distal stomach. PULMONARY ARTERIES: No filling defect is identified within the pulmonary arteries to the segmental level. Main pulmonary artery measures 3.8 cm in diameter. Several of the distal pulmonary artery branches are tortuous, for example in the left lower lobe on series 2, images 57 through 63. LUNGS AND AIRWAYS: There are severe diffuse peripheral and lower lobe predominant fibrosis with reticular changes, extensive honeycombing, traction bronchiectasis. There are consolidative opacities within the bilateral lower lobes and multifocal patchy opacities within the bilateral upper lobes, middle lobe and lingula. Mild smooth interlobular septal thickening in the lung apices. PLEURA: The pleural spaces are clear. HEART AND MEDIASTINUM: The thyroid gland is normal. Prominent subcarinal lymph node, measuring up to 1.4 cm, likely reactive. Mild cardiomegaly. Coronary atherosclerosis. No evidence of pericardial effusion. Tortuous great vessels. UPPER ABDOMEN: Limited contrast-enhanced views of the upper abdomen. Postsurgical changes in the liver. There is reflux of contrast into the IVC, suggestive of right heart dysfunction. BONES: No acute osseous abnormality. No suspicious lytic or blastic lesions. SOFT TISSUES: Unremarkable. IMPRESSION: No evidence of pulmonary embolism to the level of the segmental pulmonary arteries. Dilated main pulmonary artery, consistent with pulmonary arterial hypertension. Reflux of contrast into the IVC, suggestive of right heart dysfunction. Extensive pulmonary fibrosis with honeycombing, suggestive of UIP. Multifocal patchy and consolidative opacities likely represent superimposed pneumonia in the setting of acute exacerbation. Smooth interlobular septal thickening in the upper lungs, likely representing superimposed mild pulmonary interstitial edema. Signed by: Dr. Nico Yates MD on 01/15/2019 5:44 PM
[2019-01-15] MEDS: IPRATROPIUM BROMIDE 0.02% 2.5 ML NEB NEB SCH (19:30)
[2019-01-15 19:44] LABS: BILIRUBIN,URINE NEGATIVE (NEGATIVE); CLARITY,URINE CLEAR (CLEAR); COLOR,URINE YELLOW (YELLOW); KETONES,URINE TRACE (NEGATIVE); LEUKOCYTE ESTERASE ,URINE NEGATIVE (NEGATIVE); NITRITE,URINE NEGATIVE (NEGATIVE); PROTEIN,URINE DIPSTICK NEGATIVE (NEGATIVE); URINE UROBILINOGEN 0.2 mg/dL (0.2 - 1)
[2019-01-15 20:14] LABS: EPITHELIAL CELLS,URINE RARE /LPF; RBC,URINE 21-50 /HPF (0-5); WBC,URINE (MAN) 0-5 /HPF (0-5)
[2019-01-15 20:38] LABS: ABG PH 7.42 (7.31-7.41)
[2019-01-15 20:39] LABS: ABG HCO3 34 mmol/L (23-28); ABG PCO2 53 mmHg (41-51); ABG PO2 264 mmHg (80-105)
[2019-01-15 20:45] LABS: CREATINE KINASE MB 3.1 ng/mL (0-5.0)
[2019-01-15] MEDS: MELATONIN 3 MG TAB PO SCH (21:00)
[2019-01-16] VITALS (26 sets, daily range): BP systolic 78–169; BP diastolic 59–97
[2019-01-16] MEDS ORDERED: SODIUM CHLORIDE 0.9% 250ML 250 ML ONE (00:25)
[2019-01-16] MEDS: VANCOMYCIN 1GM/NS 250 ML 250 ML IV SCH ×2 (00:33→12:22)
[2019-01-16] MEDS: SODIUM CHLORIDE 0.9% 250ML IRRIG IR SCH ×6 (00:33→20:30)
[2019-01-16] MEDS: ALBUTEROL SULF 0.083% NEB SOLN 3 ML NEB NEB SCH ×6 (02:05→23:17)
[2019-01-16] MEDS: IPRATROPIUM BROMIDE 0.02% 2.5 ML NEB NEB SCH ×4 (02:05→19:45)
[2019-01-16] MEDS: PROPOFOL IV EMULSION 10MG/ML 100ML BTL IV PRN ×3 (02:37→20:55)
--- NOTE | 2019-01-16 05:38 | Diagnostic Imaging Report ---
Examination: Single AP view of the chest. COMPARISON: January 15, 2019 INDICATION: Pneumonia DISCUSSION: Lines/tubes: Endotracheal tube and enteric tube are stable. Lungs: Motion artifact. Stable diffuse groundglass opacity with interstitial thickening and fibrotic change. Pleura: No pleural effusion or pneumothorax. Heart and mediastinum: The heart and the mediastinum are unremarkable. Bones and soft tissues: No acute bony abnormalities. IMPRESSION: Stable pulmonary fibrosis. Correlate for superimposed pneumonia. Signed by: Dr. Timmy Cortez M.D. on 01/16/2019 5:35 AM
[2019-01-16] MEDS: LEVOTHYROXINE SODIUM 100 MCG TAB PO SCH (06:00)
[2019-01-16 06:13] LABS: BASOPHILS % 0.3 % (0.0-1.0); EOSINOPHILS % 0.1 % (0.0-6.0); HEMATOCRIT 37.3 % (34.2-44.1); LYMPHOCYTES # (AUTO) 1.6 (1.0-3.2); LYMPHOCYTES % 11.5 % (18.0-39.1); MEAN CORPUSCULAR HEMOGLOBIN 28.1 pg (28-32); MEAN CORPUSCULAR HGB CONC 31.4 g/dL (31-35); MEAN CORPUSCULAR VOLUME 89.4 fL (81-99); MONOCYTES # (AUTO) 0.9 (0.2-0.8); MONOCYTES % 6.1 % (4.4-11.3); NEUTROPHILS # (AUTO) 11.3 (2.1-6.9); NEUTROPHILS % 81.5 % (38.7-80.0); PLATELET COUNT 106 x10e3/uL (140-360); RED BLOOD COUNT 4.17 x10e6/uL (3.6-5.1); RED CELL DISTRIBUTION WIDTH 13.7 % (11.7-14.4)
[2019-01-16 06:18] LABS: HEMOGLOBIN 11.7 g/dL (12.0-16.0)
[2019-01-16] MEDS: MEROPENEM 1GM 100 ML IV SCH ×3 (06:22→21:12)
[2019-01-16] MEDS: HYDROCORTISONE SOD SUCCINATE 100 MG VIAL IV SCH ×3 (06:22→21:12)
[2019-01-16] MEDS: SODIUM CHLORIDE 0.9% 1000ML 1,000 ML IV SCH ×2 (06:22→11:16)
[2019-01-16 06:35] LABS: CREATINE KINASE MB 1.6 ng/mL (0-5.0)
[2019-01-16 07:40] LABS: ALBUMIN 2.4 g/dL (3.5-5.0); ALBUMIN/GLOBULIN RATIO 0.6 (0.8-2.0); BLOOD UREA NITROGEN 9 mg/dL (7-26); BUN/CREATININE RATIO 13 (6-25); CALCIUM 8.5 mg/dL (8.4-10.2); CARBON DIOXIDE 28 mmol/L (22-29); CHLORIDE 101 mmol/L (98-107); CREATININE, SERUM 0.72 mg/dL (0.57-1.11); EST GLOMERULAR FILTRATION RATE > 60 ML/MIN (60-); GLUCOSE 110 mg/dL (74-118); SODIUM 139 mmol/L (136-145)
[2019-01-16 07:42] LABS: ALANINE AMINOTRANSFERASE < 6 IU/L (0-55)
[2019-01-16 07:58] LABS: ALKALINE PHOSPHATASE 72 IU/L (40-150)
[2019-01-16] MEDS: FAMOTIDINE 20 MG/2 ML VIAL IV SCH ×2 (08:30→16:26)
[2019-01-16] MEDS ORDERED: POTASSIUM CHLORIDE 20MEQ/15ML UDC NG ONE (08:30)
[2019-01-16] MEDS: ENOXAPARIN SOD INJ 40 MG/0.4 ML SYR SC SCH (09:00)
[2019-01-16] MEDS ORDERED: VANCOMYCIN 1GM/NS 250 ML 250 ML IV SCH (09:00)
[2019-01-16 09:09] LABS: LYMPHOCYTES % (MANUAL) 15 % (19-48); MONOCYTES % (MANUAL) 6 % (3.4-9.0); NEUTROPHILS % (MANUAL) 78 % (40-74)
[2019-01-16 09:10] LABS: RBC MORPHOLOGY COMMENT NORMAL
[2019-01-16 09:11] LABS: SMUDGE CELLS FEW
[2019-01-16 09:12] LABS: PLATELET MORPHOLOGY COMMENT MODERATE LARGE
[2019-01-16 09:15] LABS: PLATELET ESTIMATE SLIGHTLY DECREASED
[2019-01-16] MEDS ORDERED: DEXMEDETOMIDINE 200MCG/NS 50ML 50 ML IV ONE ×2 (09:30→14:08)
[2019-01-16] MEDS ORDERED: ACETAMINOPHEN 325 MG TAB PO PRN (09:30)
[2019-01-16] MEDS ORDERED: DEXMEDETOMIDINE HCL 200 MCG in SODIUM CHLORIDE 0.9% 50ML 48 ML IV PRN (09:30)
[2019-01-16] MEDS: AZITHROMYCIN 500MG/NS 250 ML 250 ML IV SCH (10:01)
[2019-01-16] MEDS: MYCOPHENOLATE MOFETIL 250 MG CAP PO SCH (10:01)
[2019-01-16] MEDS: FOLIC ACID 1 MG TAB PO SCH (10:01)
[2019-01-16] MEDS: NOREPINEPHRINE INJ 4MG/4ML 8 MG in DEXTROSE 5% 250ML 250 ML IV PRN (10:26)
--- NOTE | 2019-01-16 10:38 | NUR ---
CONSULT FOR CALLED
--- NOTE | 2019-01-16 10:45 | NUR ---
ASSESSMENT: Spiritual distress Pt's family requests Anointing of the Sick. Pt's family states a brother (not present) asked if a development planner could provide an anointing for his sister. Pt nor brother have a family development planner. Intervention: Provided information on availability of development planner. called [facility] and relayed family's cell phone number to make contact directly with family. Pentecostal coil taper states "Fr. Portillo should visit Wednesday (01/17/19) about noon." followed up with family and RN. Provided prayer from [employer] tradition. Outcome: Will continue to follow as able. [facility] Spiritual Care Department O: [phone] Pager: [phone] ([phone] + number calling from)
[2019-01-16] MEDS ORDERED: LIDOCAINE HCL 4% 50 ML BTL ONE (13:22)
[2019-01-16] MEDS ORDERED: MIDAZOLAM HCL 2 MG/2 ML VIAL ONE (13:32)
[2019-01-16] MEDS ORDERED: MIDAZOLAM HCL 2 MG/2 ML VIAL IV NR (14:00)
--- NOTE | 2019-01-16 14:43 | Progress Note ---
DATE: 01/16/2019 SUBJECTIVE: The patient has remained on mechanical ventilation overnight. Her FiO2 has been weaned down to 0.55. She remains on Levophed but has been weaned down to 7 mcg. She is urinating. PHYSICAL EXAMINATION: VITAL SIGNS: The patient is afebrile. The blood pressure is 128/86 and the pulse is 74. She is on assist-control mode of ventilation with tidal volume of 400 and rate of 16. HEENT: Shows no facial swelling or erythema. There is an oral endotracheal tube. LYMPHATIC: Shows no submandibular, cervical or supraclavicular adenopathy. CARDIAC: Reveals regular rate and rhythm with normal S1 and S2. There are no murmurs or rubs. LUNGS: Auscultation of lungs reveals crackles in both lung asher. There is no wheezing. ABDOMEN: Soft, nontender. There is no rebound or guarding. EXTREMITIES: Show no leg edema or calf tenderness. There is no cyanosis or clubbing. SKIN: Shows no rashes. NEUROLOGICAL: Shows no focal abnormalities. LABORATORY DATA: The BUN to creatinine ratio is 9 to 0.7 and the potassium is 3. The other electrolytes are within normal limits. White blood cell count is 13.8 and hemoglobin is 11.7. The platelet count is 106. RADIOGRAPHIC DATA: Chest x-ray shows stable pulmonary fibrosis. IMPRESSION: 1. Acute on chronic respiratory failure. 2. 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 3. Scleroderma. 4. Pneumonia with immunosuppressive therapy and severe sepsis, present on admission. 5. Coronary artery disease. 6. Relative adrenal insufficiency. PLAN: 1. The patient will have a bronchoscopy today with specimen sent for respiratory viruses and opportunistic infections. 2. Continue to wean Levophed. 3. Change femoral line to a PICC line. 4. Infectious Disease consultation. 5. Echocardiogram. 6. Case discussed with Nursing. 7. Case discussed with family. Oscar Kelly MD [facility] /[id number]
--- NOTE | 2019-01-16 14:53 | Operative Report ---
DATE OF PROCEDURE: 01/16/2019 SURGEON: Oscar Kelly MD PROCEDURES: Bronchoscopy with bronchoalveolar lavage. PREOPERATIVE DIAGNOSES: Opportunistic infection and pulmonary fibrosis. POSTOPERATIVE DIAGNOSIS: Opportunistic infection and pulmonary fibrosis. CONSENT: Consent was obtained from the family. ANESTHESIA: The patient received 2 mg of Versed IV. She also was continued on a Diprivan drip. The patient was placed in a supine position. The scope was introduced through her endotracheal tube. There were significant amounts of secretions in the endotracheal tube, which were suctioned. The lianna was then examined. The lianna and the distal trachea were normal. The right tracheobronchial tree was examined. There were significant secretions in the right mainstem bronchus and bronchus intermedius. The right upper lobe appeared normal to the subsegmental level. The right middle lobe and right lower lobe were normal to the subsegmental level. There were no endobronchial lesions. Brushings were obtained from the right upper lobe. The scope was repositioned into the left tracheobronchial tree. The left upper lobe and lingula were normal to the subsegmental level. There were secretions at the orifice of the left upper lobe as well as the left mainstem bronchus. The scope was then advanced into the lower lobe. The scope was wedged in the lateral basilar subsegment of lower lobe. A bronchoalveolar lavage was performed with 60 mL of saline. COMPLICATIONS: None. ESTIMATED BLOOD LOSS: None. Oscar Kelly MD [facility] /[id number]
[2019-01-16 15:23] LABS: ABG HCO3 23 mmol/L (23-28); ABG PCO2 36 mmHg (41-51); ABG PH 7.43 (7.31-7.41); ABG PO2 58 mmHg (80-105)
--- NOTE | 2019-01-16 16:34 | Consultation ---
INFECTIOUS DISEASE CONSULTATION DATE OF CONSULTATION: 01/16/2019 REASON FOR CONSULTATION: Immunosuppression and respiratory failure. Thank you, Dr. Kelly, for asking me to see this patient, who was admitted through the emergency department. HISTORY OF PRESENT ILLNESS: The patient is a 58-year-old woman, referred for immunosuppression and respiratory failure. She is unable to give a history because she is sedated and intubated. Therefore, information was obtained from the partner and supplemented by chart review. She presented to the emergency department yesterday with disorientation. The patient was sleeping too much and was noted to have oxygen saturation of 60%. The patient has chronic cough and shortness of breath. In the emergency department, the patient was noted to have temperature of 97.1 degrees Fahrenheit, pulse rate 122, respiratory rate 42, blood pressure 158/86, and oxygen saturation 96% (FiO2 unknown). The respiratory status failed to improve with noninvasive respiratory support, so the patient was intubated. Initial laboratory studies showed blood leukocyte count of 16,120 with 88.6% neutrophils, BUN 13, creatinine 0.93, and troponin 0.028. Chest CT angiogram showed no pulmonary embolism, but there was evidence of pulmonary arterial hypertension, extensive pulmonary fibrosis with honeycombing and multifocal patchy and consolidative opacities. PAST MEDICAL HISTORY: Pulmonary arterial hypertension, rheumatoid arthritis, scleroderma, pulmonary fibrosis, and hypothyroidism. PAST SURGICAL HISTORY: None. ALLERGIES: NO KNOWN DRUG ALLERGIES. MEDICATIONS: See MAR. Current antibiotics are meropenem 1 g IV piggyback every 8 hours, azithromycin 500 mg IV piggyback every 24 hours and vancomycin 1 g IV piggyback every 12 hours. Patient currently an Enbrel and mycophenolate. IMMUNIZATION: She received pneumococcal vaccination in the past. FAMILY HISTORY: Noncontributory. SOCIAL HISTORY: She quit smoking cigarettes about 30 years ago. She drinks alcohol rarely on occasions. REVIEW OF SYSTEMS: Unable to obtain. PHYSICAL EXAMINATION: GENERAL: Acutely ill. VITAL SIGNS: T-max 101.3, pulse rate 62, respiratory rate 18, and blood pressure 160/94, on pressors. Weight 165 pounds. HEENT: Normocephalic. There is no icterus or injection of conjunctivae. There is no ear or nasal discharge. Orally intubated. NECK: Supple. LUNGS: Rhonchi and rales bilaterally. HEART: Normal S1 and S2. Regular. ABDOMEN: Normal bowel sounds in all quadrants. Soft. EXTREMITIES: There is no edema, clubbing or cyanosis. SKIN: There is no acute erythema. ADMINISTRATIVE PERSONAL ASSISTANT: Sedated. LABORATORY AND DIAGNOSTICS: WBC 13,860, hemoglobin 11.7, platelet 106,000, neutrophils 81.5, lymphocytes 11.5, monocytes 6.1, eosinophils 0.1, and basophils 0.3. BUN 13, creatinine 0.93, AST 23, ALT 11, alkaline phosphatase 109, and total bilirubin 1.2. Urinalysis was negative for pyuria. Respiratory virus PCR is pending. Bronchial washing culture is pending. Blood culture showed no growth. IMPRESSION: 1. Severe sepsis from pneumonia, present on admission. 2. Immunosuppression due to Enbrel and mycophenolate. 3. Acute on chronic hypoxic and hypercapnic respiratory failure. 4. Pulmonary fibrosis from rheumatoid arthritis and scleroderma. 5. Pulmonary arterial hypertension. 6. Hypothyroidism. PLAN: Await culture results. Antibiotics will be adjusted when the culture results are known. Contact the patient's soaking pits supervisor regarding holding mycophenolate until infection improves. Titrate pressors to systolic blood pressure equal or greater than 90. MD BAKARI Burdick/BRINA /[id number] MTDD
[2019-01-16 17:03] LABS: BODY FLUID APPEARANCE CLEAR; BODY FLUID COLOR COLORLESS; BODY FLUID TYPE BAL
[2019-01-16 17:27] LABS: RBC,BODY FLUID 148 cells/uL; WBC,BODY FLUID 474 cells/uL
[2019-01-16] MEDS ORDERED: DEXMEDETOMIDINE HCL 2 ML IV PRN (18:15)
[2019-01-16 18:30] LABS: LYMPHOCYTES,BODY FLUID 90 %; MONO/MACROPHG,BODY FLUID 8 %; NEUTROPHILS,BODY FLUID 2 %
--- NOTE | 2019-01-16 19:00 | Diagnostic Imaging Report ---
EXAMINATION: CHEST XRAY LINE PLACEMENT INDICATION: PICC LINE PLACEMENT COMPARISON: Chest radiograph 01/16/2019 5:15 AM FINDINGS: AP view TUBES and LINES: Interval placement of a right or extremity PICC, tip terminates at the cavoatrial junction. ET tube tip terminates in the mid intrathoracic trachea. Enteric tube courses into abdomen with tip at a field of view.. LUNGS: Chronic diffuse reticular opacities throughout the lungs with scattered airspace opacities. Obscured bilateral hemidiaphragms, possibly due to basilar consolidations. PLEURA: Obscured bilateral hemidiaphragms could be due to small pleural effusions. HEART AND MEDIASTINUM: The cardiomediastinal BONES AND SOFT TISSUES: No acute osseous lesion. Soft tissues are unremarkable. UPPER ABDOMEN: No free air under the diaphragm. IMPRESSION: 1. Interval placement of a right upper extremity PICC which terminates at the cavoatrial junction. 2. Pulmonary findings suspicious for edema or multifocal pneumonia on a background of fibrosis. Obscured bilateral hemidiaphragms could be due to pleural effusions and/or basilar consolidations. Signed by: Brody Cifuentes MD on 01/16/2019 6:57 PM
[2019-01-16] MEDS ORDERED: DEXMEDETOMIDINE 200MCG/NS 50ML 50 ML IV PRN (19:15)
--- NOTE | 2019-01-16 20:00 | NUR ---
New Bag of Precedex hung
[2019-01-16] MEDS: MELATONIN 3 MG TAB PO SCH (21:00)
[2019-01-17] VITALS (24 sets, daily range): BP systolic 88–269; BP diastolic 56–104
[2019-01-17] MEDS: SODIUM CHLORIDE 0.9% 1000ML 1,000 ML IV SCH ×2 (00:07→02:14)
[2019-01-17] MEDS: SODIUM CHLORIDE 0.9% 250ML IRRIG IR SCH ×6 (00:07→20:12)
--- NOTE | 2019-01-17 00:09 | NUR ---
New Bag of Precedex hung
[2019-01-17] MEDS: VANCOMYCIN 1GM/NS 250 ML 250 ML IV SCH ×2 (00:39→12:53)
--- NOTE | 2019-01-17 02:26 | Consultation ---
DATE OF CONSULTATION: 01/16/2019 Cardiology Consultation Thank you, Dr. Oscar Kelly for this consultation. DIAGNOSES: 1. Some pulmonary fibrosis. 2. Rheumatoid arthritis. 3. Scleroderma. 4. Congestive heart failure, left ventricular ejection fraction is about 25% to 30%. 5. Respiratory failure. The patient is on ventilator. HISTORY OF PRESENT ILLNESS: Ms. Mariano June is a 58-year-old seen in ICU at [facility]. The patient came for significant respiratory insufficiency because of pulmonary fibrosis. Dr. Oscar Kelly, assistant associate full professor, american indian policy specialist has seen the patient and taking care of the respiratory failure. The patient is already on ventilator. At this time, the patient is also seen by Infectious Doctor, Dr. Beni Cortez. The patient is on multiple antibiotics and CTA did not show any pulmonary embolus. EKG does not show acute IN. Increase in troponin borderline may be the type 2 increase in troponin. I do not think she had a myocardial infarction and we will keep watch on her. The patient's blood pressure at this time is 150/125 mmHg, the patient's heart rate is 72 per minute, oxygen sats 100%. The patient is also on propofol. The patient also had a bronchoscopy done by Dr. Oscar Kelly. Laboratory evaluation of the bronchoscopy findings still not internalize. At this time, cardiac-mitchell, only thing the patient has LV dysfunction, but the patient had good urine output. No renal failure. The patient's WBC count is also normal. We will continue to follow the patient as the patient has good urine output and the patient will continue present medications. Probably, we are going to start her on lisinopril and also metoprolol tartrate once the patient settles down somewhat better, anyhow, I will continue to follow the patient Cardiac-mitchell. I will add lisinopril 2.5 mg once a day and also the patient will be given aspirin 81 mg a day. At a later time, we will add a beta jarek once respiratory condition improves. Thank you again for this consultation. MD ALEK Lee/[facility] /[id number] LIBRADO
[2019-01-17] MEDS: ALBUTEROL SULF 0.083% NEB SOLN 3 ML NEB NEB SCH ×6 (02:50→23:12)
[2019-01-17] MEDS: IPRATROPIUM BROMIDE 0.02% 2.5 ML NEB NEB SCH ×4 (02:50→19:25)
--- NOTE | 2019-01-17 04:23 | NUR ---
New Bag of Precedex hung
[2019-01-17 05:09] LABS: BASOPHILS % 0.2 % (0.0-1.0); HEMATOCRIT 34.9 % (34.2-44.1); HEMOGLOBIN 10.6 g/dL (12.0-16.0); LYMPHOCYTES # (AUTO) 0.6 (1.0-3.2); LYMPHOCYTES % 4.6 % (18.0-39.1); MEAN CORPUSCULAR HEMOGLOBIN 27.7 pg (28-32); MEAN CORPUSCULAR HGB CONC 30.4 g/dL (31-35); MEAN CORPUSCULAR VOLUME 91.1 fL (81-99); MONOCYTES # (AUTO) 0.6 (0.2-0.8); MONOCYTES % 4.5 % (4.4-11.3); NEUTROPHILS # (AUTO) 11.5 (2.1-6.9); PLATELET COUNT 103 x10e3/uL (140-360); RED BLOOD COUNT 3.83 x10e6/uL (3.6-5.1); RED CELL DISTRIBUTION WIDTH 13.8 % (11.7-14.4)
[2019-01-17 05:26] LABS: ALANINE AMINOTRANSFERASE 6 IU/L (0-55); ALBUMIN/GLOBULIN RATIO 0.5 (0.8-2.0); ALKALINE PHOSPHATASE 61 IU/L (40-150); ANION GAP 10.9 mmol/L (8-16); BLOOD UREA NITROGEN 15 mg/dL (7-26); BUN/CREATININE RATIO 24 (6-25); CALCIUM 8.1 mg/dL (8.4-10.2); CARBON DIOXIDE 24 mmol/L (22-29); CHLORIDE 111 mmol/L (98-107); CREATININE, SERUM 0.62 mg/dL (0.57-1.11); EST GLOMERULAR FILTRATION RATE > 60 ML/MIN (60-); GLUCOSE 154 mg/dL (74-118); POTASSIUM 3.9 mmol/L (3.5-5.1); SODIUM 142 mmol/L (136-145)
[2019-01-17] MEDS: HYDROCORTISONE SOD SUCCINATE 100 MG VIAL IV SCH ×3 (06:11→21:40)
[2019-01-17] MEDS: LEVOTHYROXINE SODIUM 100 MCG TAB PO SCH (06:11)
[2019-01-17] MEDS: MEROPENEM 1GM 100 ML IV SCH ×3 (06:11→21:40)
--- NOTE | 2019-01-17 07:41 | Diagnostic Imaging Report ---
EXAM: CHEST SINGLE (PORTABLE), AP Portable DATE: 01/17/2019 Time stamp on exam: 6:49 AM INDICATION: Respiratory failure COMPARISON: 01/16/2019 FINDINGS: LINES/TUBES: Unchanged position of a right PICC and NG tube. ET tube is above the tracheal bifurcation. LUNGS: Unchanged pulmonary opacities most likely secondary to edema. PLEURA: No effusions or pneumothorax. HEART AND MEDIASTINUM: Heart is enlarged. BONES AND SOFT TISSUES: No acute findings. IMPRESSION: Unchanged pulmonary edema. Signed by: Dr. Meliton Auguste DO on 01/17/2019 7:37 AM
[2019-01-17] MEDS: ASPIRIN 81 MG ENTERIC COATED PO SCH (08:24)
[2019-01-17] MEDS: MYCOPHENOLATE MOFETIL 250 MG CAP PO SCH (08:24)
[2019-01-17] MEDS: LISINOPRIL 2.5 MG TAB PO SCH (08:24)
[2019-01-17] MEDS: AZITHROMYCIN 500MG/NS 250 ML 250 ML IV SCH (08:24)
[2019-01-17] MEDS: FAMOTIDINE 20 MG/2 ML VIAL IV SCH ×2 (08:24→17:09)
[2019-01-17] MEDS: FOLIC ACID 1 MG TAB PO SCH (08:24)
[2019-01-17] MEDS: ENOXAPARIN SOD INJ 40 MG/0.4 ML SYR SC SCH (08:25)
[2019-01-17 08:36] LABS: LYMPHOCYTES % (MANUAL) 3 % (19-48); MONOCYTES % (MANUAL) 2 % (3.4-9.0); NEUTROPHILS % (MANUAL) 95 % (40-74); PLATELET ESTIMATE ADEQUATE; PLATELET MORPHOLOGY COMMENT NORMAL; RBC MORPHOLOGY COMMENT NORMAL
[2019-01-17] MEDS ORDERED: ASPIRIN 325 MG TAB PO ONE (09:00)
[2019-01-17] MEDS ORDERED: FUROSEMIDE INJ 10 MG/ML 2 ML VIAL IV ONE (09:00)
[2019-01-17 09:06] LABS: ABG PCO2 47 mmHg (41-51); ABG PH 7.32 (7.31-7.41); ABG PO2 109 mmHg (80-105)
[2019-01-17 09:07] LABS: ABG HCO3 24 mmol/L (23-28)
--- NOTE | 2019-01-17 09:10 | NUR ---
DR CHRISTIE ORDER CHANGED VENT SETTING RATE 18,FIO2 50%.
--- NOTE | 2019-01-17 13:02 | NUR ---
DISCUSSED IN BARRIER ROUNDS, PT HAS A PIC LINE, ON ABX, ON LASIX, ABG IS IMPROVING, BRONCH AND WASH COMPLETED YESTERDAY, STARTED TUBE FEEDS AND IS TOLERATING WELL, HAS MED SURG ORDERS WITH TELE.
--- NOTE | 2019-01-17 16:00 | NUR ---
RESTRAINT TRIAL ATTEMPTED.
--- NOTE | 2019-01-17 16:11 | NUR ---
Nutrition Intervention Note RD Recommendation(s) for Physician: -Rec changing TF formula to Vital AF 1.2 with goal rate @45mL/hr (1296kcal, 81g protein, 876mL water) to better meet her protein and calorie needs -Water flushes per MD -Check gastric residual, labs, and daily weight Plan of Care: RD following, monitoring for tolerance and adequacy, TF rec Nutrition reason for involvement: New TF RD Assessment 01/17 - 58yo F, who was admitted for cough and dyspnea. Currently intubated and ventilated. Pt was discussed during AM rounds. Failed vent weaning protocol. Only IV Precedex running. Pt is tolerating Osmolite 1.2 @30mL/hr well. Visited pt in the room. Unable to obtain hx from pt. Sisters on bedside dont know much about patient. Weight during her last admission in 06/2019 was at 165lb. Not suspecting any recent weight loss. Will continue to monitor and follow. Principal Problems/Diagnoses: 1. Severe sepsis from pneumonia, present on admission. 2. Immunosuppression due to Enbrel and mycophenolate. 3. Acute on chronic hypoxic and hypercapnic respiratory failure. PMH: 1. Rheumatoid arthritis. 2. Hypothyroidism. 3. Pulmonary fibrosis. 4. Hypertension. 5. Diabetes. GI: abdomen soft, flatus present Skin: no pressure wound noted Labs: (01/17) glucose 154 H, Ca 8.1 L Meds: solu-cortef, abx, lovenox, pepcid, folic acid, synthroid Ht: 59in Wt: 175.13lb BMI: 35.4kg/m2 IBW: 98lb +/- 10% Malnutrition Evaluation (01/17/2019) Unable to evaluate at this time. Nutrition Prescription (Diet Order): Osmolite 1.2 @30mL/hr Estimated Nutritional Needs: Calories: 1078 1225kcal (22-25kcal/kg/d) Weight used : IBW Protein: 74 122g(1.5-2.5g/kg/d) Weight used: IBW Diet Adequacy: Not meeting calorie needs, Not meeting protein needs Diet Education Needs Assessment: Diet education indicated, but patient not appropriate for education at this time. Nutrition Care Level: mod Nutrition Diagnosis: Inadequate oral intake related to current medical status as evidenced by pt requiring EN as main source of nutrition. Goal: Patient will meet 75-100% of estimated needs by follow up Progress: Progressing Interventions: Composition, Rate, Route, IVF, Prescription medications Monitoring/Evaluation: Total energy intake, Total protein intake, Formula/Solution, IVF, Prescription medication, Weight change Signed: Cary Felder MS, RD, LD
--- NOTE | 2019-01-17 17:08 | NUR ---
RESTRAINTS TRIAL OVER
--- NOTE | 2019-01-17 17:14 | Progress Note ---
DATE: 01/17/2019 Pulmonary Critical Care Progress Note SUBJECTIVE: The patient was placed on spontaneous breathing trial this morning, but became tachypneic. She was switched back to pressure regulated volume control. The patient received IV Lasix with about a L of urine output. She is not febrile. She is weaned off the pressors. PHYSICAL EXAMINATION: VITAL SIGNS: The patient is afebrile. The blood pressure is 128/84 and the pulse is 75. The respiratory rate is 18. Saturation is 100%. HEENT: Shows no facial swelling or erythema. The nasal mucosa is normal. There is an oral endotracheal tube in place. CARDIAC: Reveals a regular rate and rhythm with normal S1 and S2. There are no murmurs or rubs. LUNGS: Auscultation of lungs reveals rhonchorous breath sounds bilaterally. There is no wheezing. ABDOMEN: Soft, nontender. There is no rebound or guarding. EXTREMITIES: Show no leg edema or calf tenderness. There is no cyanosis or clubbing. SKIN: Shows no rashes. LABORATORY DATA: The electrolytes are within normal limits. The white blood cell count is 12.8 and hemoglobin is 10.6. The platelet count is 103. IMPRESSION: 1. Acute on chronic respiratory failure. 2. 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 3. Acute on chronic systolic congestive heart failure related to cardiomyopathy. 4. Scleroderma. 5. Rheumatoid arthritis. PLAN: 1. Continue current antibiotics. 2. Adjust antibiotics depending on culture results. 3. Continue diuretics. 4. Continue to wean ventilator as tolerated. 5. Continue enteral feedings. 6. Monitor platelet count. 7. Case discussed with family and nursing staff. 8. Greater than 35 minutes in direct critical care time during 2 separate visits. Oscar Kelly MD [facility]/MODL /[id number]
[2019-01-17] MEDS: FUROSEMIDE INJ 10 MG/ML 2 ML VIAL IV SCH (17:57)
[2019-01-17] MEDS: MELATONIN 3 MG TAB PO SCH (21:00)
--- NOTE | 2019-01-17 23:18 | NUR ---
New Bag of Precedex hung
[2019-01-18] VITALS (25 sets, daily range): BP systolic 95–167; BP diastolic 43–95
[2019-01-18] MEDS: SODIUM CHLORIDE 0.9% 250ML IRRIG IR SCH ×6 (00:16→19:32)
[2019-01-18] MEDS: VANCOMYCIN 1GM/NS 250 ML 250 ML IV SCH ×2 (00:17→12:43)
--- NOTE | 2019-01-18 02:30 | NUR ---
New Bag of Precedex hung
[2019-01-18] MEDS: ALBUTEROL SULF 0.083% NEB SOLN 3 ML NEB NEB SCH ×6 (02:35→22:45)
[2019-01-18] MEDS: IPRATROPIUM BROMIDE 0.02% 2.5 ML NEB NEB SCH ×4 (02:35→19:05)
[2019-01-18 05:08] LABS: BASOPHILS % 0.2 % (0.0-1.0); EOSINOPHILS % 0.3 % (0.0-6.0); HEMATOCRIT 34.5 % (34.2-44.1); HEMOGLOBIN 10.7 g/dL (12.0-16.0); LYMPHOCYTES # (AUTO) 0.5 (1.0-3.2); LYMPHOCYTES % 4.9 % (18.0-39.1); MEAN CORPUSCULAR HEMOGLOBIN 27.5 pg (28-32); MEAN CORPUSCULAR VOLUME 88.7 fL (81-99); MONOCYTES # (AUTO) 0.6 (0.2-0.8); MONOCYTES % 5.1 % (4.4-11.3); NEUTROPHILS # (AUTO) 9.5 (2.1-6.9); NEUTROPHILS % 88.3 % (38.7-80.0); PLATELET COUNT 93 x10e3/uL (140-360); RED BLOOD COUNT 3.89 x10e6/uL (3.6-5.1); RED CELL DISTRIBUTION WIDTH 13.7 % (11.7-14.4)
[2019-01-18 05:29] LABS: ALANINE AMINOTRANSFERASE 8 IU/L (0-55); ALBUMIN 2.2 g/dL (3.5-5.0); ALBUMIN/GLOBULIN RATIO 0.6 (0.8-2.0); ALKALINE PHOSPHATASE 68 IU/L (40-150); BLOOD UREA NITROGEN 24 mg/dL (7-26); BUN/CREATININE RATIO 35 (6-25); CALCIUM 8.2 mg/dL (8.4-10.2); CARBON DIOXIDE 28 mmol/L (22-29); CHLORIDE 108 mmol/L (98-107); CREATININE, SERUM 0.69 mg/dL (0.57-1.11); EST GLOMERULAR FILTRATION RATE > 60 ML/MIN (60-); GLUCOSE 187 mg/dL (74-118); SODIUM 143 mmol/L (136-145)
[2019-01-18] MEDS: FUROSEMIDE INJ 10 MG/ML 2 ML VIAL IV SCH ×2 (06:07→17:00)
[2019-01-18] MEDS: LEVOTHYROXINE SODIUM 100 MCG TAB PO SCH (06:07)
[2019-01-18] MEDS: HYDROCORTISONE SOD SUCCINATE 100 MG VIAL IV SCH ×3 (06:07→21:31)
[2019-01-18] MEDS: MEROPENEM 1GM 100 ML IV SCH ×3 (06:07→21:31)
--- NOTE | 2019-01-18 06:56 | Diagnostic Imaging Report ---
EXAMINATION: CHEST SINGLE (PORTABLE) COMPARISON: Chest x-ray 01/17/2019 INDICATION: Intubated ^Resp Failure ^[id number] ^0526 DISCUSSION: Frontal view of the chest obtained at 0619 hours. HEART AND MEDIASTINUM: Stable cardiomegaly LINES: Endotracheal tube terminates 3 cm above the diaphragm. Enteric tube extends past the diaphragm. Right PICC line terminates in the SVC. LUNGS: Low lung volumes are redemonstrated with diffuse coarse reticular markings. No marietta consolidations. PLEURA: No pleural effusion or pneumothorax. BONES AND SOFT TISSUES: No focal osseous lesion. The soft tissues are normal. IMPRESSION: 1. Support devices as described above. 2. Stable low lung volumes and coarse reticular markings suggestive of fibrosis. Signed by: Dr. Roscoe Campbell MD on 01/18/2019 6:52 AM
--- NOTE | 2019-01-18 07:15 | NUR ---
ASSESSMENT: Spiritual concern Pt's sister communicating with pt via clipboard. Pt's sister confirms visited and provided anointing on 01/17/19. Intervention: Provided prayer and reminded pt & sister of availability of tear down worker. Outcome: Will continue to follow as able. [facility]all[facility] Spiritual Care Department O: [phone] Pager: [phone] ([phone] number calling from)
--- NOTE | 2019-01-18 07:43 | NUR ---
dr warren present, attempting to wean. orders recvd for potassium
[2019-01-18] MEDS: FAMOTIDINE 20 MG/2 ML VIAL IV SCH ×2 (07:57→16:41)
[2019-01-18] MEDS ORDERED: POTASSIUM CHLORIDE 20MEQ/15ML UDC NG ONE ×2 (08:00→16:30)
[2019-01-18] MEDS: MYCOPHENOLATE MOFETIL 250 MG CAP PO SCH (08:00)
[2019-01-18] MEDS: AZITHROMYCIN 500MG/NS 250 ML 250 ML IV SCH (08:00)
[2019-01-18] MEDS: ASPIRIN 81 MG ENTERIC COATED PO SCH (08:00)
[2019-01-18] MEDS: FOLIC ACID 1 MG TAB PO SCH (08:00)
[2019-01-18] MEDS: LISINOPRIL 2.5 MG TAB PO SCH (08:01)
[2019-01-18] MEDS: ENOXAPARIN SOD INJ 40 MG/0.4 ML SYR SC SCH (08:01)
[2019-01-18] MEDS ORDERED: LORAZEPAM INJ 2 MG/ML VIAL IV ONE ×2 (08:30→16:15)
[2019-01-18 10:03] LABS: ABG PH 7.36 (7.31-7.41)
[2019-01-18 10:04] LABS: ABG HCO3 29 mmol/L (23-28); ABG PCO2 51 mmHg (41-51); ABG PO2 102 mmHg (80-105)
--- NOTE | 2019-01-18 14:16 | NUR ---
PT DISCUSSED IN BARRIER ROUNDS, INTUBATED FOLLOWS COMMANDS, WEANING FROM CPAP, POSSIBLE EXTUBATION.
--- NOTE | 2019-01-18 16:49 | Progress Note ---
DATE: 01/18/2019 Pulmonary Critical Care Progress Note SUBJECTIVE: The patient was placed on CPAP twice a day, but became tachypneic on both occasions. She does not have fevers. She does still have increased secretions. She has no fever. She has no chest pain. PHYSICAL EXAMINATION: VITAL SIGNS: The patient is afebrile. The blood pressure is 133/83 and saturation is 100%. She is on a pressure regulated volume control. She has an oral endotracheal tube in place. CARDIAC: Reveals a regular rate and rhythm with normal S1 and S2. LUNGS: Auscultation of lungs reveals rhonchorous breath sounds bilaterally. There is no wheezing. ABDOMEN: Soft, nontender. There is no rebound or guarding. EXTREMITIES: Show no leg edema or calf tenderness. There is no cyanosis or clubbing. SKIN: Shows no rashes. NEUROLOGICAL: Shows no focal abnormalities. IMPRESSION: 1. Kotkl-bu-pclhsrg respiratory failure. 2. 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 3. Acute on chronic systolic congestive heart failure. 4. Scleroderma. 5. Hypokalemia. PLAN: 1. Case discussed with two sisters and nursing staff. 2. Case discussed with respiratory. 3. Continue diuretics. 4. Continue current antibiotics and await culture results. 5. Continue enteral feedings. 6. Greater than 35 minutes in direct critical care time during 2 separate visits. Oscar Kelly MD [facility]/SET[facility] /[id number]
[2019-01-18] MEDS: MELATONIN 3 MG TAB PO SCH (19:55)
[2019-01-18] MEDS: DEXMEDETOMIDINE 200MCG/NS 50ML 50 ML IV PRN (21:30)
[2019-01-19] VITALS (27 sets, daily range): BP systolic 84–171; BP diastolic 43–94
[2019-01-19] MEDS: SODIUM CHLORIDE 0.9% 250ML IRRIG IR SCH ×6 (00:19→20:30)
[2019-01-19] MEDS: VANCOMYCIN 1GM/NS 250 ML 250 ML IV SCH ×2 (00:19→11:42)
[2019-01-19] MEDS: DEXMEDETOMIDINE 200MCG/NS 50ML 50 ML IV PRN ×2 (01:06→05:45)
[2019-01-19] MEDS: IPRATROPIUM BROMIDE 0.02% 2.5 ML NEB NEB SCH ×4 (03:00→19:00)
[2019-01-19] MEDS: ALBUTEROL SULF 0.083% NEB SOLN 3 ML NEB NEB SCH ×6 (03:00→22:50)
[2019-01-19] MEDS ORDERED: LORAZEPAM INJ 2 MG/ML VIAL IV STA (03:36)
[2019-01-19] MEDS ORDERED: LORAZEPAM INJ 2 MG/ML VIAL ONE (03:42)
[2019-01-19 05:23] LABS: BASOPHILS % 0.1 % (0.0-1.0); HEMATOCRIT 34.6 % (34.2-44.1); HEMOGLOBIN 10.7 g/dL (12.0-16.0); LYMPHOCYTES # (AUTO) 0.8 (1.0-3.2); LYMPHOCYTES % 7.3 % (18.0-39.1); MEAN CORPUSCULAR HEMOGLOBIN 27.9 pg (28-32); MEAN CORPUSCULAR HGB CONC 30.9 g/dL (31-35); MEAN CORPUSCULAR VOLUME 90.3 fL (81-99); MONOCYTES # (AUTO) 0.7 (0.2-0.8); MONOCYTES % 6.6 % (4.4-11.3); NEUTROPHILS # (AUTO) 8.8 (2.1-6.9); PLATELET COUNT 102 x10e3/uL (140-360); RED BLOOD COUNT 3.83 x10e6/uL (3.6-5.1); RED CELL DISTRIBUTION WIDTH 13.9 % (11.7-14.4)
[2019-01-19 05:38] LABS: ALANINE AMINOTRANSFERASE 9 IU/L (0-55); ALBUMIN 2.2 g/dL (3.5-5.0); ALBUMIN/GLOBULIN RATIO 0.6 (0.8-2.0); ALKALINE PHOSPHATASE 66 IU/L (40-150); ANION GAP 9.6 mmol/L (8-16); BLOOD UREA NITROGEN 24 mg/dL (7-26); BUN/CREATININE RATIO 39 (6-25); CALCIUM 8.4 mg/dL (8.4-10.2); CARBON DIOXIDE 35 mmol/L (22-29); CHLORIDE 106 mmol/L (98-107); CREATININE, SERUM 0.62 mg/dL (0.57-1.11); EST GLOMERULAR FILTRATION RATE > 60 ML/MIN (60-); GLUCOSE 122 mg/dL (74-118); POTASSIUM 3.6 mmol/L (3.5-5.1); SODIUM 147 mmol/L (136-145)
[2019-01-19] MEDS: LEVOTHYROXINE SODIUM 100 MCG TAB PO SCH (05:45)
[2019-01-19] MEDS: FUROSEMIDE INJ 10 MG/ML 2 ML VIAL IV SCH (05:45)
[2019-01-19] MEDS: MEROPENEM 1GM 100 ML IV SCH ×3 (05:45→21:49)
[2019-01-19] MEDS: HYDROCORTISONE SOD SUCCINATE 100 MG VIAL IV SCH ×3 (05:45→21:50)
--- NOTE | 2019-01-19 06:39 | Diagnostic Imaging Report ---
EXAMINATION: CHEST SINGLE (PORTABLE) COMPARISON: Chest x-ray 01/18/2019 INDICATION: ^Reps Failure ^[id number] ^2319 DISCUSSION: Frontal view of the chest obtained at 0609 hours. HEART AND MEDIASTINUM: The cardiomediastinal silhouette is stable LINES: Endotracheal tube is located in the right main bronchus, 3 cm below the lianna. Right PICC line terminates in the SVC. Enteric tube extends past the diaphragm. LUNGS: Low lung volumes and fibrotic changes are redemonstrated. No new pulmonary findings. No pneumonia or pulmonary edema. PLEURA: No pleural effusion or pneumothorax. BONES AND SOFT TISSUES: No focal osseous lesion. The soft tissues are normal. IMPRESSION: ET tube terminates in the right main bronchus. Stable low lung volumes and fibrotic changes. No new pulmonary process. Findings of malpositioned ET tube given to CAITY Jon for Ms. Quintana at the time of dictation. Confirmed. Signed by: Dr. Roscoe Campbell MD on 01/19/2019 6:36 AM
--- NOTE | 2019-01-19 08:25 | Diagnostic Imaging Report ---
EXAMINATION: CHEST SINGLE (PORTABLE) INDICATION: ^ET Tube placement ^[id number] ^0800 COMPARISON: Same day at 6:09 AM FINDINGS: See impression. IMPRESSION: Endotracheal tube is slightly retracted, however the tip is still projecting at the proximal right main bronchus. Recommend 3 cm retraction. Pulmonary status and enteric tube are unchanged. Signed by: Dr. Ricardo Negro MD on 01/19/2019 8:21 AM
[2019-01-19] MEDS: MYCOPHENOLATE MOFETIL 250 MG CAP PO SCH (09:00)
[2019-01-19] MEDS: FOLIC ACID 1 MG TAB PO SCH (09:00)
[2019-01-19] MEDS: LISINOPRIL 2.5 MG TAB PO SCH (09:00)
[2019-01-19] MEDS: ASPIRIN 81 MG ENTERIC COATED PO SCH (09:00)
[2019-01-19] MEDS: FAMOTIDINE 20 MG/2 ML VIAL IV SCH ×2 (09:57→16:22)
[2019-01-19] MEDS: AZITHROMYCIN 500MG/NS 250 ML 250 ML IV SCH (09:57)
[2019-01-19] MEDS: ENOXAPARIN SOD INJ 40 MG/0.4 ML SYR SC SCH (09:57)
--- NOTE | 2019-01-19 11:03 | Progress Note ---
DATE: 01/19/2019 Pulmonary Critical Care Progress Note SUBJECTIVE: The patient received some diuretics yesterday. This morning, she was placed on a pressure support of 10 and CPAP of 5. She was breathing 27 times a minute with tidal volumes of 300 mL. She is awake. PHYSICAL EXAMINATION: VITAL SIGNS: The patient is afebrile. The vital signs are stable. HEENT: No facial swelling or erythema. There is an oral endotracheal tube in place. There is a PICC line. The site is clean. CARDIAC: Regular rate and rhythm with normal S1, S2. There are no murmurs or rubs. Auscultation of lungs reveals crackles in both lung asher. ABDOMEN: Soft and nontender. There is no rebound or guarding. EXTREMITIES: There is no leg edema or calf tenderness. There is no cyanosis or clubbing. SKIN: No rashes. IMPRESSION: 1. Wbgnb-po-fskhrxh respiratory failure. 2. 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 3. Rmqfh-rk-jelxqjr systolic congestive heart failure. 4. Systolic cardiomyopathy with decreased ejection fraction. 5. Hypokalemia. 6. Rheumatoid arthritis. PLAN: 1. Extubation to BiPAP; the patient has chronic respiratory problems and is on a noninvasive ventilator at home. Her respiratory mechanics and weaning parameters will never be completely normal and they are currently at baseline. 2. Continue diuresis. 3. Continue current cardiac regimen. 4. Replace potassium. 5. Stop enteral feedings in preparation for extubation. 6. Case discussed with respiratory, nursing, and two sisters. Case discussed with the patient. 7. Greater than 35 minutes spent in direct critical care time. Oscar Kelly MD [facility] /[id number]
--- NOTE | 2019-01-19 13:30 | NUR ---
hospice meeting with family. comfort care only for pt, no further invasive care. pt intermittently agitated and medicated as per gume. Addendum: 01/19/19 at 1822 by Rand Rivas RN previous note entered in error
[2019-01-19 14:33] LABS: ABG HCO3 39 mmol/L (23-28); ABG PCO2 56 mmHg (41-51); ABG PH 7.45 (7.31-7.41); ABG PO2 90 mmHg (80-105)
[2019-01-19 14:36] LABS: ABG PH 7.44 (7.31-7.41)
[2019-01-19 14:37] LABS: ABG HCO3 40 mmol/L (23-28); ABG PCO2 59 mmHg (41-51); ABG PO2 89 mmHg (80-105)
--- NOTE | 2019-01-19 14:49 | Progress Note ---
DATE: 01/19/2019 Cardiology Progress Note PULMONOLOGY: Dr. Oscar Kelly. DIAGNOSES: 1. Respiratory failure. At this time, the patient extubated. The patient on CPAP. 2. History of rheumatoid arthritis. 3. Scleroderma. 4. Acute on chronic congestive heart failure. Left ventricular ejection fraction about 35%. 5. No history of myocardial infarction and no history of diabetes mellitus. The patient at this time improved very much considerably since she came to the hospital. The patient came with significant respiratory failure and also some heart failure. The patient was treated by Dr. Oscar Kelly, tai chi instructor, ICU, and she has done tremendous improvement and has been extubated also. Cardiac-mitchell, the patient only shows 35% ejection fraction, needs low-dose lisinopril. The patient is on multiple medications, please see the admission reconciliation medication. Briefly, I spoke with the family members, sisters, and cousin. The patient has no history of myocardial infarction, no chest pain or diabetes mellitus and I did tell them her main issues are mainly pulmonary and cardiac only. At this time, we will treat only medically. We will continue present medications. MD ALEK Lee/BRINA /[id number]
[2019-01-19] MEDS ORDERED: FUROSEMIDE INJ 10 MG/ML 2 ML VIAL IV SCH (17:00)
[2019-01-19] MEDS: MELATONIN 3 MG TAB PO SCH (21:00)
[2019-01-20] VITALS (24 sets, daily range): BP systolic 112–169; BP diastolic 78–94
[2019-01-20] MEDS: VANCOMYCIN 1GM/NS 250 ML 250 ML IV SCH ×2 (00:15→15:48)
[2019-01-20] MEDS: IPRATROPIUM BROMIDE 0.02% 2.5 ML NEB NEB SCH ×4 (02:55→18:50)
[2019-01-20] MEDS: ALBUTEROL SULF 0.083% NEB SOLN 3 ML NEB NEB SCH ×6 (03:00→22:55)
[2019-01-20 05:24] LABS: BASOPHILS % 0.2 % (0.0-1.0); EOSINOPHILS % 0.4 % (0.0-6.0); HEMATOCRIT 35.9 % (34.2-44.1); HEMOGLOBIN 10.7 g/dL (12.0-16.0); LYMPHOCYTES # (AUTO) 1.1 (1.0-3.2); MEAN CORPUSCULAR HEMOGLOBIN 27.6 pg (28-32); MEAN CORPUSCULAR HGB CONC 29.8 g/dL (31-35); MEAN CORPUSCULAR VOLUME 92.5 fL (81-99); MONOCYTES # (AUTO) 0.9 (0.2-0.8); MONOCYTES % 8.4 % (4.4-11.3); NEUTROPHILS # (AUTO) 8.5 (2.1-6.9); NEUTROPHILS % 79.5 % (38.7-80.0); PLATELET COUNT 123 x10e3/uL (140-360); RED BLOOD COUNT 3.88 x10e6/uL (3.6-5.1); RED CELL DISTRIBUTION WIDTH 13.9 % (11.7-14.4)
[2019-01-20] MEDS: LEVOTHYROXINE SODIUM 100 MCG TAB PO SCH (05:35)
[2019-01-20] MEDS: HYDROCORTISONE SOD SUCCINATE 100 MG VIAL IV SCH ×3 (05:35→22:00)
[2019-01-20] MEDS: MEROPENEM 1GM 100 ML IV SCH ×3 (05:35→22:00)
[2019-01-20 05:41] LABS: ALANINE AMINOTRANSFERASE 15 IU/L (0-55); ALBUMIN 2.5 g/dL (3.5-5.0); ALBUMIN/GLOBULIN RATIO 0.7 (0.8-2.0); ALKALINE PHOSPHATASE 70 IU/L (40-150); BLOOD UREA NITROGEN 28 mg/dL (7-26); BUN/CREATININE RATIO 47 (6-25); CALCIUM 8.8 mg/dL (8.4-10.2); CHLORIDE 103 mmol/L (98-107); EST GLOMERULAR FILTRATION RATE > 60 ML/MIN (60-); GLUCOSE 92 mg/dL (74-118); SODIUM 153 mmol/L (136-145)
[2019-01-20 05:43] LABS: CARBON DIOXIDE 42 mmol/L (22-29)
--- NOTE | 2019-01-20 06:07 | Diagnostic Imaging Report ---
EXAMINATION: CHEST SINGLE (PORTABLE) COMPARISON: Chest x-ray 01/19/2019 INDICATION: ^Resp Failure DISCUSSION: Frontal view of the chest obtained at 0531 hours. HEART AND MEDIASTINUM: The cardiomediastinal silhouette is stable. LINES: Status post extubation. Enteric tube has been removed. Right PICC line remains in the SVC LUNGS: Low lung volumes and fibrotic changes are redemonstrated. No new findings. PLEURA: No pleural effusion or pneumothorax. Stable eventration of the right diaphragm. BONES AND SOFT TISSUES: No focal osseous lesion. The soft tissues are normal. IMPRESSION: Status post extubation. No new pulmonary findings. Signed by: Dr. Roscoe Campbell MD on 01/20/2019 6:04 AM
[2019-01-20] MEDS ORDERED: POTASSIUM CHLORIDE 20MEQ/15ML UDC NG STA (07:43)
[2019-01-20] MEDS ORDERED: DEXTROSE 5% 1,000 ML IV ONE (08:00)
[2019-01-20] MEDS: FAMOTIDINE 20 MG/2 ML VIAL IV SCH ×2 (08:56→17:46)
[2019-01-20] MEDS: ASPIRIN 81 MG ENTERIC COATED PO SCH (08:59)
[2019-01-20] MEDS: MYCOPHENOLATE MOFETIL 250 MG CAP PO SCH (08:59)
[2019-01-20] MEDS: AZITHROMYCIN 500MG/NS 250 ML 250 ML IV SCH (09:00)
[2019-01-20] MEDS: FOLIC ACID 1 MG TAB PO SCH (09:00)
[2019-01-20] MEDS: ENOXAPARIN SOD INJ 40 MG/0.4 ML SYR SC SCH (09:00)
[2019-01-20] MEDS: LISINOPRIL 2.5 MG TAB PO SCH (09:00)
--- NOTE | 2019-01-20 11:12 | Progress Note ---
DATE: 01/20/2019 SUBJECTIVE: The patient has remained on BiPAP overnight. She is asking to have the BiPAP removed. She complains of being thirsty. She does not have fevers. PHYSICAL EXAMINATION: VITAL SIGNS: The patient is afebrile. The blood pressure is 144/88 and pulse ox is 100%. She is on BiPAP with 60%. HEENT: Shows no facial swelling or erythema. CARDIAC: Reveals regular rate and rhythm with normal S1, S2. There are no murmurs or rubs. LUNGS: Auscultation of lungs reveals crackles in both lung asher. There is wheezing. ABDOMEN: Soft, nontender. There is no rebound or guarding. EXTREMITIES: Show no leg edema or calf tenderness. LABORATORY DATA: Sodium is 153, potassium is 3.0, and carbon dioxide is 42. The BUN to creatinine ratio is 28:0.6. Albumin is 2.5. White blood cell count is 10.65, and hemoglobin is 10.7. The platelet count is 13.9. IMPRESSION: 1. Acute on chronic respiratory failure. 2. Nonspecific interstitial pneumonitis. 3. Scleroderma. 4. Moderate protein-calorie malnutrition. 5. Acute on chronic systolic congestive heart failure. 6. Anemia secondary to chronic blood loss. PLAN: 1. Switch the patient to high-flow nasal oxygen today. 2. Hold Lasix and give some free water. 3. Advance feeding slowly. Swallowing evaluation when speech therapy is available. 4. Continue to monitor electrolytes. 5. Case discussed with Nursing, patient, and family. MD GINA Call/BRINA /[id number]
--- NOTE | 2019-01-20 14:39 | NUR ---
PT DISCUSSED IN ROUNDS, ON LOVANOX, AND PEPCID, 3 ABX AND BIPAP WITH HIGH FLOW IN EVENINGS. SPEECH TO SEE DUE TO EXTUBATED YESTERDAY
--- NOTE | 2019-01-20 17:16 | NUR ---
Nutrition Follow-up Note RD Recommendation(s) for Physician: -Rec advance diet as tolerated to ADA 1600 diet; diet texture per AUTOMOTIVE PARTS COUNTER ASSISTANT Plan of Care: RD following, monitoring for tolerance and adequacy Nutrition reason for involvement: Follow up RD Assessment: 01/20 - Pt was discussed during AM rounds. Pt was extubated yesterday. Pending AUTOMOTIVE [employer]S COUNTER ASSISTANT evaluation. MD has ordered clear liquid diet. Visited pt in the room. Pt reported occasional cough with fluids. Pt stated thats just my regular cough. Pt was given precaution to take small sips of fluids. Normal BM. No complains of nausea or vomiting. Weight has been stable. TF was discontinued. Will continue to monitor and follow. 01/17 - 58yo F, who was admitted for cough and dyspnea. Currently intubated and ventilated. Pt was discussed during AM rounds. Failed vent weaning protocol. Only IV Precedex running. Pt is tolerating Osmolite 1.2 @30mL/hr well. Visited pt in the room. Unable to obtain hx from pt. Sisters on bedside dont know much about patient. Weight during her last admission in 06/2019 was at 165lb. Not suspecting any recent weight loss. Will continue to monitor and follow. Principal Problems/Diagnoses: 1. Severe sepsis from pneumonia, present on admission. 2. Immunosuppression due to Enbrel and mycophenolate. 3. Acute on chronic hypoxic and hypercapnic respiratory failure. PMH: 1. Rheumatoid arthritis. 2. Hypothyroidism. 3. Pulmonary fibrosis. 4. Hypertension. 5. Diabetes. GI: abdomen soft, flatus present Skin: no pressure wound noted Labs: (01/20) Na 153 H, K 3.0 L, BUN 28 H (01/17) glucose 154 H, Ca 8.1 L Meds: solu-cortef, abx, lisinopril, lovenox, folic acid, dextrose, pepcid Ht: 59in Wt: 175.13lb; 173.56lb BMI: 35.4kg/m2 IBW: 98lb +/- 10% Malnutrition Evaluation (01/20/2019) The patient does not meet criteria for a specified degree of malnutrition at this time. Will re-evaluate at follow-up as appropriate. Malnutrition Evaluation (01/17/2019) Unable to evaluate at this time. Nutrition Prescription (Diet Order): clear liquid Estimated Nutritional Needs: Calories: 1225 - 1470kcal (25-30kcal/kg/d) Weight used : IBW Protein: 74 98g (1.5-2g/kg/d) Weight used: IBW Diet Adequacy: Not meeting calorie needs, Not meeting protein needs Diet Education Needs Assessment: Diet education indicated, but patient not appropriate for education at this time. Nutrition Care Level: low Nutrition Diagnosis: No nutrition diagnosis at this time. Goal: Patient will meet 75-100% of estimated needs by follow up Progress: Progressing Interventions: Modified diet Monitoring/Evaluation: Total energy intake, Total protein intake, Modified diet, weight change Signed: Cary Felder MS, RD, LD
--- NOTE | 2019-01-20 19:37 | NUR ---
called and left a message to dr Cortez, regarding whether or not patient need an order for vanco trough before next vanco dose. awaiting for call back.
--- NOTE | 2019-01-20 19:39 | NUR ---
dr Cortez called back, per MD order, not to do any vanco trough.
--- NOTE | 2019-01-20 20:04 | Progress Note ---
DATE: 01/20/2019 Cardiology Progress Note The patient is seen in the room. She is extubated. The patient doing well at this time. The patient's respirations got better. Blood pressure 150/90 and lisinopril is already increased from 2.5 mg to 5 mg and at this time, we will probably in a day or 2 may increase lisinopril to 10 mg. the patient still has blood pressure around 148/80. At this time cardiac-mitchell, the patient's left ventricle ejection fraction 30% to 35%, but her main issue is the patient got significant pulmonary issues like a pulmonary hypertension and the patient has rheumatoid arthritis and also the patient has scleroderma and followed very close per Oscar Kelly. At this time cardiac-mitchell, I will continue to follow the patient. Probably, we need to add some other cardiac medication to improve her LV function, probably we will add spironolactone, I will do this after discussing with Dr. Oscar Kelly. Beta-jarek, may not be ideal candidate to start at this time, so may be increasing the TREMAINE inhibitors at least 20 mg she can tolerate it and on spironolactone and I will continue to follow the patient cardiac-mitchell. MD ALEK Lee/BRINA /[id number]
[2019-01-20] MEDS: MELATONIN 3 MG TAB PO SCH (21:03)
[2019-01-21] VITALS (25 sets, daily range): BP systolic 135–161; BP diastolic 76–100
[2019-01-21] MEDS: VANCOMYCIN 1GM/NS 250 ML 250 ML IV SCH ×2 (01:12→14:22)
[2019-01-21] MEDS: ALBUTEROL SULF 0.083% NEB SOLN 3 ML NEB NEB SCH ×6 (02:40→23:05)
[2019-01-21] MEDS: IPRATROPIUM BROMIDE 0.02% 2.5 ML NEB NEB SCH ×5 (02:40→23:05)
[2019-01-21 04:28] LABS: BASOPHILS % 0.3 % (0.0-1.0); HEMATOCRIT 35.5 % (34.2-44.1); HEMOGLOBIN 10.5 g/dL (12.0-16.0); LYMPHOCYTES # (AUTO) 1.5 (1.0-3.2); LYMPHOCYTES % 13.4 % (18.0-39.1); MEAN CORPUSCULAR HEMOGLOBIN 27.5 pg (28-32); MEAN CORPUSCULAR HGB CONC 29.6 g/dL (31-35); MEAN CORPUSCULAR VOLUME 92.9 fL (81-99); MONOCYTES # (AUTO) 0.6 (0.2-0.8); MONOCYTES % 5.3 % (4.4-11.3); NEUTROPHILS # (AUTO) 8.4 (2.1-6.9); NEUTROPHILS % 77.2 % (38.7-80.0); PLATELET COUNT 129 x10e3/uL (140-360); RED BLOOD COUNT 3.82 x10e6/uL (3.6-5.1); RED CELL DISTRIBUTION WIDTH 13.5 % (11.7-14.4)
[2019-01-21 04:50] LABS: ALANINE AMINOTRANSFERASE 46 IU/L (0-55); ALBUMIN 2.4 g/dL (3.5-5.0); ALBUMIN/GLOBULIN RATIO 0.7 (0.8-2.0); ALKALINE PHOSPHATASE 68 IU/L (40-150); ANION GAP 10.5 mmol/L (8-16); BLOOD UREA NITROGEN 22 mg/dL (7-26); BUN/CREATININE RATIO 42 (6-25); CALCIUM 8.5 mg/dL (8.4-10.2); CARBON DIOXIDE 39 mmol/L (22-29); CHLORIDE 100 mmol/L (98-107); CREATININE, SERUM 0.53 mg/dL (0.57-1.11); EST GLOMERULAR FILTRATION RATE > 60 ML/MIN (60-); GLUCOSE 95 mg/dL (74-118); POTASSIUM 3.5 mmol/L (3.5-5.1); SODIUM 146 mmol/L (136-145)
[2019-01-21] MEDS: LEVOTHYROXINE SODIUM 100 MCG TAB PO SCH (05:32)
[2019-01-21] MEDS: HYDROCORTISONE SOD SUCCINATE 100 MG VIAL IV SCH ×3 (05:32→20:45)
[2019-01-21] MEDS: MEROPENEM 1GM 100 ML IV SCH ×3 (05:32→21:45)
--- NOTE | 2019-01-21 05:53 | Diagnostic Imaging Report ---
EXAMINATION: CHEST SINGLE (PORTABLE) COMPARISON: Chest x-ray 01/20/2019 INDICATION: Pulmonary Fibrosis DISCUSSION: Frontal view of the chest obtained at 0533 hours. HEART AND MEDIASTINUM: Stable mild cardiomegaly LINES: Right PICC line remains in the SVC LUNGS: Low lung volumes and fibrotic changes are redemonstrated. Stable eventration of the right diaphragm. No new findings. PLEURA: No pleural effusion or pneumothorax. BONES AND SOFT TISSUES: Stable. IMPRESSION: Stable fibrotic changes and cardiomegaly. No new cardiopulmonary process. Signed by: Dr. Roscoe Campbell MD on 01/21/2019 5:50 AM
--- NOTE | 2019-01-21 06:05 | NUR ---
patient just had a bed bath, tolerated well, noted dry coughs. vitals stable.
[2019-01-21] MEDS: AZITHROMYCIN 500MG/NS 250 ML 250 ML IV SCH (09:35)
[2019-01-21] MEDS: ENOXAPARIN SOD INJ 40 MG/0.4 ML SYR SC SCH (09:35)
[2019-01-21] MEDS: FAMOTIDINE 20 MG/2 ML VIAL IV SCH ×2 (09:35→17:13)
[2019-01-21] MEDS: FOLIC ACID 1 MG TAB PO SCH (09:35)
[2019-01-21] MEDS: ASPIRIN 81 MG ENTERIC COATED PO SCH (09:35)
[2019-01-21] MEDS: LISINOPRIL 2.5 MG TAB PO SCH (09:35)
[2019-01-21] MEDS: MYCOPHENOLATE MOFETIL 250 MG CAP PO SCH (09:35)
--- NOTE | 2019-01-21 11:26 | Progress Note ---
DATE: 01/21/2019 SUBJECTIVE: The patient is now on high-flow oxygen. She feels better. She did have some clear liquids yesterday, but started coughing. PHYSICAL EXAMINATION: VITAL SIGNS: The blood pressure is 158/83 and the saturation is 94%. Pulse is 92. HEENT: Shows no facial swelling or erythema. CARDIAC: Reveals regular rate and rhythm with normal S1 and S2. There are no murmurs or rubs heard. LUNGS: Auscultation of lungs reveals rhonchorous breath sounds bilaterally. There is no wheezing. ABDOMEN: Soft and nontender. There is no rebound or guarding. IMPRESSION: 1. Mikfo-di-nyskyiw respiratory failure. 2. Nonspecific interstitial pneumonitis. 3. Scleroderma. 4. Moderate protein-calorie malnutrition. 5. Bkiyk-pm-zxsqspj systolic congestive heart failure. 6. Anemia, secondary to chronic blood loss. PLAN: 1. Speech therapy to evaluate swallowing function. 2. Continue to advance diet as tolerated. 3. Continue antibiotics. 4. Wean oxygen. 5. Physical therapy. MD GINA Call/BRINA /[id number]
[2019-01-21] MEDS: MELATONIN 3 MG TAB PO SCH (20:44)
[2019-01-22] VITALS (25 sets, daily range): BP systolic 92–167; BP diastolic 62–101
[2019-01-22] MEDS: VANCOMYCIN 1GM/NS 250 ML 250 ML IV SCH ×2 (00:10→12:44)
[2019-01-22] MEDS: ALBUTEROL SULF 0.083% NEB SOLN 3 ML NEB NEB SCH ×6 (03:00→22:45)
[2019-01-22] MEDS: LEVOTHYROXINE SODIUM 100 MCG TAB PO SCH (05:31)
[2019-01-22] MEDS: MEROPENEM 1GM 100 ML IV SCH (05:31)
[2019-01-22] MEDS: HYDROCORTISONE SOD SUCCINATE 100 MG VIAL IV SCH ×2 (05:31→20:35)
[2019-01-22] MEDS: IPRATROPIUM BROMIDE 0.02% 2.5 ML NEB NEB SCH ×4 (07:35→22:45)
[2019-01-22] MEDS: FAMOTIDINE 20 MG/2 ML VIAL IV SCH ×2 (09:13→17:01)
[2019-01-22] MEDS: AZITHROMYCIN 500MG/NS 250 ML 250 ML IV SCH (09:18)
[2019-01-22] MEDS: ASPIRIN 81 MG ENTERIC COATED PO SCH (09:20)
[2019-01-22] MEDS: LISINOPRIL 2.5 MG TAB PO SCH (09:21)
[2019-01-22] MEDS: FOLIC ACID 1 MG TAB PO SCH (09:21)
[2019-01-22] MEDS: ENOXAPARIN SOD INJ 40 MG/0.4 ML SYR SC SCH (09:21)
[2019-01-22] MEDS: MYCOPHENOLATE MOFETIL 250 MG CAP PO SCH (09:21)
--- NOTE | 2019-01-22 10:30 | NUR ---
Dr Aurelio Kelly to bedside.
--- NOTE | 2019-01-22 10:45 | NUR ---
RT placed patient on 4L NC.
--- NOTE | 2019-01-22 11:26 | Progress Note ---
DATE: 01/22/2019 SUBJECTIVE: The patient feels better. She has less dyspnea. She still has some cough. PHYSICAL EXAMINATION: VITAL SIGNS: Blood pressure is 143/78, saturation is 99%, and pulse is 75. HEENT: Shows no facial swelling or erythema. The oropharynx is normal. LYMPHATIC: Shows no submandibular, cervical, or supraclavicular adenopathy. CARDIAC: Reveals regular rate and rhythm with normal S1, S2. There are no murmurs or rubs. LUNGS: Auscultation of lungs reveals rhonchorous breath sounds bilaterally. There is no wheezing. ABDOMEN: Soft, nontender. There is no rebound or guarding. EXTREMITIES: There is no leg edema or calf tenderness. IMPRESSION: 1. Wcbxr-ac-fizhuif respiratory failure. 2. Nonspecific interstitial pneumonitis. 3. Scleroderma. 4. Moderate protein-calorie malnutrition. 5. Anemia. 6. Gqmvt-ys-nzijmgh systolic congestive heart failure. PLAN: 1. Discontinue Flower. 2. Out of bed as tolerated. 3. Continue antibiotics. 4. Continue current cardiac regimen. 5. Switch to nasal cannula. Oscar Kelly MD [facility] /[id number]
[2019-01-22] MEDS ORDERED: GUAIFENESIN/CODEINE 10 ML CUP PO PRN (17:00)
--- NOTE | 2019-01-22 19:24 | NUR ---
patient is in bed, awake alert oriented, no distress noted. stated that her Flower catheter was removed around 5 pm and she already voided, nurse changed her earlier. will continue to monitor.
[2019-01-22] MEDS: MELATONIN 3 MG TAB PO SCH (20:35)
[2019-01-23] VITALS (22 sets, daily range): BP systolic 92–170; BP diastolic 66–106
[2019-01-23] MEDS: VANCOMYCIN 1GM/NS 250 ML 250 ML IV SCH ×2 (01:00→12:36)
[2019-01-23] MEDS: ALBUTEROL SULF 0.083% NEB SOLN 3 ML NEB NEB SCH ×6 (02:59→23:00)
[2019-01-23 05:21] LABS: BASOPHILS % 0.2 % (0.0-1.0); EOSINOPHILS % 0.1 % (0.0-6.0); HEMATOCRIT 35.4 % (34.2-44.1); LYMPHOCYTES # (AUTO) 1.6 (1.0-3.2); LYMPHOCYTES % 16.6 % (18.0-39.1); MEAN CORPUSCULAR HEMOGLOBIN 28.2 pg (28-32); MEAN CORPUSCULAR HGB CONC 31.1 g/dL (31-35); MEAN CORPUSCULAR VOLUME 90.8 fL (81-99); MONOCYTES # (AUTO) 0.5 (0.2-0.8); MONOCYTES % 5.1 % (4.4-11.3); NEUTROPHILS # (AUTO) 7.2 (2.1-6.9); NEUTROPHILS % 75.5 % (38.7-80.0); PLATELET COUNT 144 x10e3/uL (140-360); RED CELL DISTRIBUTION WIDTH 13.6 % (11.7-14.4)
[2019-01-23 05:45] LABS: ALANINE AMINOTRANSFERASE 37 IU/L (0-55); ALBUMIN 2.4 g/dL (3.5-5.0); ALBUMIN/GLOBULIN RATIO 0.7 (0.8-2.0); ALKALINE PHOSPHATASE 67 IU/L (40-150); ANION GAP 8.9 mmol/L (8-16); BLOOD UREA NITROGEN 15 mg/dL (7-26); BUN/CREATININE RATIO 29 (6-25); CHLORIDE 94 mmol/L (98-107); CREATININE, SERUM 0.51 mg/dL (0.57-1.11); EST GLOMERULAR FILTRATION RATE > 60 ML/MIN (60-); GLUCOSE 99 mg/dL (74-118); SODIUM 141 mmol/L (136-145)
[2019-01-23 06:09] LABS: CARBON DIOXIDE 41 mmol/L (22-29); POTASSIUM 2.9 mmol/L (3.5-5.1)
[2019-01-23] MEDS: LEVOTHYROXINE SODIUM 100 MCG TAB PO SCH (06:09)
--- NOTE | 2019-01-23 06:13 | NUR ---
called and spoke with dr Oscar Kelly, patient potassium level this morning is 2.9;MD ordered potassium replacement.
[2019-01-23] MEDS ORDERED: POTASSIUM CHLORIDE 20 MEQ TAB CR PO ONE (06:30)
[2019-01-23] MEDS: IPRATROPIUM BROMIDE 0.02% 2.5 ML NEB NEB SCH ×3 (07:18→18:55)
[2019-01-23] MEDS: AZITHROMYCIN 500MG/NS 250 ML 250 ML IV SCH (08:08)
[2019-01-23] MEDS: FAMOTIDINE 20 MG/2 ML VIAL IV SCH ×2 (08:08→16:26)
[2019-01-23] MEDS: MYCOPHENOLATE MOFETIL 250 MG CAP PO SCH (08:08)
[2019-01-23] MEDS: HYDROCORTISONE SOD SUCCINATE 100 MG VIAL IV SCH ×2 (08:08→20:14)
[2019-01-23] MEDS: FOLIC ACID 1 MG TAB PO SCH (08:08)
[2019-01-23] MEDS: ASPIRIN 81 MG ENTERIC COATED PO SCH (08:08)
[2019-01-23] MEDS: LISINOPRIL 2.5 MG TAB PO SCH (08:09)
--- NOTE | 2019-01-23 08:24 | NUR ---
pt resting in bed. alert and oriented. pt to see PT before dc per MD
--- NOTE | 2019-01-23 11:00 | Progress Note ---
DATE: 01/23/2019 SUBJECTIVE: The patient has some improvement. She is down to 4 liters of oxygen. She is still weak and only stands with maximal assist. Her potassium was low and required repletion. PHYSICAL EXAMINATION: VITAL SIGNS: The patient is afebrile. The blood pressure is 167/88. The saturation is 98% on 4 liters. The pulse is 71. HEENT: Shows no facial swelling or erythema. CARDIAC: Reveals a regular rate and rhythm with a normal S1 and S2. There are no murmurs or rubs. PULMONARY: Auscultation of the lungs reveal clear breath sounds bilaterally. There is no wheezing. ABDOMEN: Soft and nontender. There is no rebound or guarding. EXTREMITIES: Show no leg edema. IMPRESSION: 1. Acute on chronic respiratory failure. 2. Nonspecific interstitial pneumonitis. 3. Scleroderma. 4. Protein-calorie malnutrition, that is moderate. 5. Anemia secondary to chronic blood loss. 6. Acute on chronic systolic congestive heart failure. PLAN: 1. Physical Therapy. 2. Transfer to floor. 3. Replete potassium. 4. Taper antibiotics. Oscar Kelly MD [facility] /[id number]
[2019-01-23] MEDS: MELATONIN 3 MG TAB PO SCH (20:14)
--- NOTE | 2019-01-23 21:45 | NUR ---
PT ARRIVED ON THE UNIT VIA WHEELCHAIR AT 2145. RESPIRATION IS EVEN AND UNLABORED, NO DISTRESS NOTED. BED IN THE LOWEST POSITION, LOCKED, BED ALARM ON, AND CALL LIGHT WITHIN REACH. WILL CONTINUE TO MONITOR.
[2019-01-24] VITALS (10 sets, daily range): BP systolic 136–187; BP diastolic 80–91
[2019-01-24] MEDS: IPRATROPIUM BROMIDE 0.02% 2.5 ML NEB NEB SCH ×3 (01:00→13:00)
[2019-01-24] MEDS: ALBUTEROL SULF 0.083% NEB SOLN 3 ML NEB NEB SCH ×4 (03:00→15:00)
[2019-01-24] MEDS: LEVOTHYROXINE SODIUM 100 MCG TAB PO SCH (05:10)
[2019-01-24 06:22] LABS: BASOPHILS % 0.2 % (0.0-1.0); EOSINOPHILS % 0.1 % (0.0-6.0); HEMOGLOBIN 10.9 g/dL (12.0-16.0); LYMPHOCYTES # (AUTO) 1.1 (1.0-3.2); LYMPHOCYTES % 11.3 % (18.0-39.1); MEAN CORPUSCULAR HEMOGLOBIN 27.9 pg (28-32); MEAN CORPUSCULAR HGB CONC 30.3 g/dL (31-35); MEAN CORPUSCULAR VOLUME 92.1 fL (81-99); MONOCYTES # (AUTO) 0.4 (0.2-0.8); MONOCYTES % 4.4 % (4.4-11.3); NEUTROPHILS # (AUTO) 8.2 (2.1-6.9); NEUTROPHILS % 81.8 % (38.7-80.0); PLATELET COUNT 164 x10e3/uL (140-360); RED BLOOD COUNT 3.91 x10e6/uL (3.6-5.1); RED CELL DISTRIBUTION WIDTH 13.7 % (11.7-14.4)
[2019-01-24 07:03] LABS: ALANINE AMINOTRANSFERASE 34 IU/L (0-55); ALBUMIN 2.6 g/dL (3.5-5.0); ALBUMIN/GLOBULIN RATIO 0.7 (0.8-2.0); ALKALINE PHOSPHATASE 69 IU/L (40-150); ANION GAP 7.9 mmol/L (8-16); BLOOD UREA NITROGEN 11 mg/dL (7-26); BUN/CREATININE RATIO 22 (6-25); CALCIUM 8.4 mg/dL (8.4-10.2); CARBON DIOXIDE 40 mmol/L (22-29); CHLORIDE 95 mmol/L (98-107); CREATININE, SERUM 0.51 mg/dL (0.57-1.11); EST GLOMERULAR FILTRATION RATE > 60 ML/MIN (60-); GLUCOSE 100 mg/dL (74-118); SODIUM 140 mmol/L (136-145)
[2019-01-24 07:05] LABS: POTASSIUM 2.9 mmol/L (3.5-5.1)
--- NOTE | 2019-01-24 07:20 | NUR ---
PATIENT IS IN STABLE CONDITION WITH NO S/S OF RESPIRATORY DISTRESS. NO PAIN VOICED. 02 APPLIED. TELEMETRY APPLIED. DIAPER APPLIED. BED ALARM ON. CALL LIGHT IS WITHIN REACH, PATIENT INSTRUCTED TO CALL FOR ASSISTANCE NEEDED.
[2019-01-24] MEDS: ASPIRIN 81 MG ENTERIC COATED PO SCH (08:32)
[2019-01-24] MEDS: LISINOPRIL 2.5 MG TAB PO SCH (08:32)
[2019-01-24] MEDS: FOLIC ACID 1 MG TAB PO SCH (08:32)
[2019-01-24] MEDS: FAMOTIDINE 20 MG/2 ML VIAL IV SCH (08:33)
[2019-01-24] MEDS: HYDROCORTISONE SOD SUCCINATE 100 MG VIAL IV SCH (08:33)
[2019-01-24] MEDS: AZITHROMYCIN 500MG/NS 250 ML 250 ML IV SCH (08:51)
[2019-01-24] MEDS: MYCOPHENOLATE MOFETIL 250 MG CAP PO SCH (08:51)
--- NOTE | 2019-01-24 09:09 | NUR ---
CALLED AND SPOKE WITH DR. GANDHI REGARDING POTASSIUM OF 2.9- ORDER FOR PO KDUR 40MEQ.
[2019-01-24] MEDS ORDERED: POTASSIUM CHLORIDE 20 MEQ TAB CR PO ONE ×2 (09:30→14:00)
--- NOTE | 2019-01-24 13:52 | Discharge Summary ---
DISCHARGE MEDICATIONS: 1. Z-Artem. 2. Vitamin D. 3. Enbrel. 4. Melatonin 3 mg p.o. at bedtime. 5. Mycophenolate 250 mg two tablets p.o. daily. 6. Omeprazole 20 mg p.o. daily. 7. Prednisone 5 mg p.o. daily. 8. Ranitidine 150 mg p.o. daily. 9. Synthroid 150 mg p.o. daily. 10. Folic acid 1 mg p.o. daily. DISCHARGE DIAGNOSES: 1. Acute on chronic respiratory failure. 2. Nonspecific interstitial pneumonitis. 3. Healthcare-associated pneumonia with immunosuppression and severe sepsis, present on admission. 4. Scleroderma. 5. Moderate protein-calorie malnutrition. 6. Anemia secondary to chronic blood loss. 7. Acute on chronic systolic congestive heart failure. CONSULTANTS: 1. Dr. Beni Cortez of Infectious Disease. 2. Dr. Cuevas of Cardiology. HISTORY OF PRESENT ILLNESS: The patient is a 58-year-old woman. She has a history of scleroderma and rheumatoid arthritis. She has nonspecific interstitial pulmonary fibrosis. She uses oxygen at home as well as bronchodilators. She came in complaining of worsening cough. She had congestion and fevers. HOSPITAL COURSE: The patient was admitted. She was tried on BiPAP in the emergency department, but deteriorated and required endotracheal intubation. She subsequently went to the ICU and underwent bronchoscopy. She was continued on antibiotics. After several days, she was extubated. She was switched to a high-flow oxygen and then to a nasal cannula. The patient was transferred to the floor. She was seen by Physical Therapy. She was weaned down to 4 L of oxygen which is her baseline at home. She felt better and was able to walk to the bathroom without difficulty. She was very eager to go home. DISPOSITION: The patient will go home and will follow up with Dr. Kelly in 1 week. Oscar Kelly MD [facility]/SET[facility] /[id number]
--- NOTE | 2019-01-24 16:25 | NUR ---
PATIENT DISCHARGE HOME- PATIENT OFF THE UNIT AT 1624 PER WHEELCHAIR ACCOMPANIED BY PCT TO THE FRONT LOBBY. PATIENT IS IN STABLE CONDITION WITH NO S/S OF RESPIRATORY DISTRESS-NO PAIN VOICED.PICC LINE REMOVED WITH TIP INTACT. O2 APPLIED AT 4L NC. DISCHARGE TEACHING, INSTRUCTIONS, AND MEDICATIONS GIVEN TO THE PATIENT. ALL PERSONAL ITEMS TAKEN WITH THE PATIENT.
== END 2019-01-24 16:25 | disposition home or self-care (01) | DRG 871 ==
LOC: ER 11:40 → ERHOLD 15:44 → ICU 15:48 → MED/SURG3 01-23 21:45
PROVIDERS: ADMIT Internal Medicine Critical Care Medicine; ATTEND Internal Medicine Critical Care Medicine
PROC: 0B9J8ZX Drainage of Left Lower Lung Lobe, Via Natural or Artificial Opening Endoscopic, Diagnostic (ICD-10-PCS; principal; 2019-01-15)
PROC: 0B938ZZ Drainage of Right Main Bronchus, Via Natural or Artificial Opening Endoscopic (ICD-10-PCS; 2019-01-15)
PROC: 02HV33Z Insertion of Infusion Device into Superior Vena Cava, Percutaneous Approach (ICD-10-PCS; 2019-01-16)
DX: A41.9 Sepsis, unspecified organism (principal); J96.22 Acute and chronic respiratory failure with hypercapnia; J96.21 Acute and chronic respiratory failure with hypoxia; I50.23 Acute on chronic systolic (congestive) heart failure; J18.9 Pneumonia, unspecified organism; M34.81 Systemic sclerosis with lung involvement; E27.40 Unspecified adrenocortical insufficiency; I42.8 Other cardiomyopathies; E44.0 Moderate protein-calorie malnutrition; J84.17 Other interstitial pulmonary diseases with fibrosis in diseases classified elsewhere; R65.20 Severe sepsis without septic shock; I11.0 Hypertensive heart disease with heart failure; I25.10 Atherosclerotic heart disease of native coronary artery without angina pectoris; E87.6 Hypokalemia; I10 Essential (primary) hypertension; I27.21 Secondary pulmonary arterial hypertension; D50.0 Iron deficiency anemia secondary to blood loss (chronic); Z68.32 Body mass index [BMI] 32.0-32.9, adult; Y95 Nosocomial condition
CPT/HCPCS: 31500; 31623; 36415; 36555; 36569; 36600; 51700; 71045; 71260; 80053; 80202; 81001; 82550; 82553; 82805; 82948; 83605; 83735; 83880; 84134; 84484; 85025; 85379; 85610; 85730; 87040; 87070; 87086; 87102; 87116; 87205; 87206; 87278; 87335; 87385; 87449; 87633; 88112; 88305; 89051; 93005; 93306; 94002; 94003; 94640; 94660; 96365; 96366; 97139; 99285; J0330; J0456; J1650; J1720; J1940; J2060; J2250; J3370; J7030; J7050; J7070; Q9967

== ENCOUNTER 2019-10-17 17:34 | Emergency (ER) | payer MEDICARE ==
[~2019-10-17] VITALS: Ht 149.9 cm; Wt 73.9 kg
[~2019-10-17 17:34] MED LIST changes: +ENBREL25 MG; +LEVOCETIRIZINE D5 MG PO; +MELATONIN3 MG PO; +MYCOPHENOLATE250 MG PO; +PREDNISONE5 MG PO; +RANITIDINE HCL150 MG PO; +VITAMIN D400 UNIT PO
[2019-10-17] MEDS ORDERED: CEPHALEXIN 500 MG CAP PO STA (18:08)
[2019-10-17 18:41] LABS: BILIRUBIN,URINE NEGATIVE (NEGATIVE); CLARITY,URINE CLEAR (CLEAR); COLOR,URINE YELLOW (YELLOW); KETONES,URINE NEGATIVE (NEGATIVE); LEUKOCYTE ESTERASE ,URINE NEGATIVE (NEGATIVE); NITRITE,URINE NEGATIVE (NEGATIVE); PROTEIN,URINE DIPSTICK NEGATIVE (NEGATIVE); URINE UROBILINOGEN 1 mg/dL (0.2 - 1)
[2019-10-17 18:53] LABS: BACTERIA,URINE MODERATE /HPF; EPITHELIAL CELLS,URINE FEW /LPF; RBC,URINE 0-5 /HPF (0-5)
== END 2019-10-17 19:42 | disposition home or self-care (01) ==
LOC: ER 17:34
DX: B02.9 Zoster without complications (principal); N39.0 Urinary tract infection, site not specified; M06.9 Rheumatoid arthritis, unspecified; J84.10 Pulmonary fibrosis, unspecified; M34.9 Systemic sclerosis, unspecified
CPT/HCPCS: 81001; 99283